=== PATIENT | female | born 1990 | race Caucasian/White ===

== ENCOUNTER → 2016-12-21 | Outpatient (CLI) | payer OTHER ==
[~2016-12-21] MED LIST: ALUM-30 PO; CALC500C3 PO; IBUP1CAP PO; OXYC-57 PO; PRENTAB26 PO
[2016-12-21 14:57] LABS: URINE APPEARANCE CLEAR (CLEAR); URINE BILIRUBIN NEG (NEG); URINE COLOR YELLOW; URINE EPITHELIAL CELL AUTO >30 /lpf (0-5); URINE NITRITE NEG (NEG); URINE PH 7.5 (4.5-7.5); URINE SPECIFIC GRAVITY 1.009 (1.000-1.030); UROBILINOGEN NEG (NEG)
[2016-12-21 15:05] LABS: MANUAL MICROSCOPIC REQUIRED? NO; REVIEW REQ? NO
== END | disposition home or self-care (01) ==
LOC: C.LABSPEC 13:40
PROVIDERS: ATTEND Obstetrics & Gynecology
DX: Z98.891 History of uterine scar from previous surgery (principal)

== ENCOUNTER → 2016-12-27 | Outpatient (CLI) | payer OTHER ==
[2016-12-27 12:51] LABS: BASO % 0.2 %; BASO ABS # 0.01 K/uL (0-0.2); COMPLETE YES; EOS % 2.3 %; HEMATOCRIT 39.8 % (37-47); IG% 0.2 %; LYMPH % 33.1 %; LYMPH ABS # 2.16 K/uL (1.2-3.4); MEAN CELL VOLUME 89.8 fL (80-100); MEAN CORPUSCULAR HEMOGLOBIN 30.7 pg (25-34); MEAN CORPUSCULAR HGB CONC 34.2 g/dl (32-36); MEAN PLATELET VOLUME 9.5 fL (7.4-10.4); MONO % 8.7 %; NEUT % 55.5 %; PLATELET COUNT 199 K/uL (130-400); RED BLOOD COUNT 4.43 M/uL (4.2-5.4); WHITE BLOOD COUNT 6.52 K/uL (4.8-10.8)
== END | disposition home or self-care (01) ==
LOC: C.LAB1850 11:20
PROVIDERS: ATTEND Obstetrics & Gynecology
DX: O09.299 Supervision of pregnancy with other poor reproductive or obstetric history, unspecified trimester (principal)

== ENCOUNTER → 2016-12-27 | Outpatient (CLI) | payer OTHER ==
[2016-12-30 15:38] LABS: CHLAMYDIA TRACH RNA*** NOT DETECTED (NOT DETECTED); GC (NEIS GONORRHOEAE)RNA** NOT DETECTED (NOT DETECTED)
== END | disposition home or self-care (01) ==
LOC: C.LABSPEC 14:06
PROVIDERS: ATTEND Obstetrics & Gynecology
DX: O09.299 Supervision of pregnancy with other poor reproductive or obstetric history, unspecified trimester (principal)

== ENCOUNTER 2017-01-13 11:12 | Emergency (ER) | payer OTHER ==
[~2017-01-13 11:12] MED LIST changes: -ALUM-30 PO; -CALC500C3 PO; -OXYC-57 PO
[2017-01-13 11:16] VITALS: TEMP 36.7
[2017-01-13] MEDS ORDERED: SODIUM CHLORIDE 0.9% 1000ML 1,000 ML IV STA (11:35)
[2017-01-13] MEDS ORDERED: SODIUM CHLORIDE 0.9% 1000ML 1,000 ML IV ONE (11:35)
--- NOTE | 2017-01-13 11:35 | EMERGENCY ROOM VISIT NOTE ---
History Report prepared by Alla: Yogesh Orta Under the Supervision of: Dr. Bartolo Sousa M.D. First contact with patient: 11:20 Chief Complaint: ABDOMINAL PAIN Stated Complaint: RIGHT SIDE LOWERE ABD. PAIN/HEADACHE Nursing Triage Summary: "I woke up this morning and I have lower abdominal pain between my pelvis and abdomen." She related that the pain was so bad she could not breathe and her fiance carried her to bed. History of Present Illness The patient is a 26 year old female who presents to the Emergency Room with complaints of sharp right lower quadrant abdominal pain that began this morning. She rates her pain a 2/10 in severity. Her pain awoke her from slumber. Nothing particularly makes it better or worse. At this time, she went to the bathroom and thought it may have been a pulled muscle. She then became diaphoretic, lightheaded, and shaky. She felt like she was going to pass out. These symptoms have cleared up at this time. However, she has a headache. She denies any chest pain, cough, shortness of breath, trauma, diarrhea, melena, or hematochezia. She has a history of 7 pregnancies in the past, 4 of which were miscarriages before 9 weeks. She is currently 12 weeks . She has a past medical history of cesarian sections. Source of History: patient, family Onset: last night Position: abdomen (RLQ) Symptom Intensity: 2/10 Quality: sharp Timing: constant Associated Symptoms: + headache, No SOB, No back pain, No chest pain, No diarrhea, No hematochezia, No melena, No vomiting Review of Systems See HPI for pertinent positives & negatives. A total of 10 systems reviewed and were otherwise negative. Past Medical & Surgical Medical Problems: (1) Active Labor (2) Bladder Laceration (3) REPEAT SECTION Old medical records were reviewed. Nurse's notes were reviewed and I agree with. She's had several pregnancies as well as miscarriage, total of 7 pregnancies Family History Patient reports no known family medical history. Social History Smoking Status: Never Smoker Smokeless Tobacco Use: No Alcohol Use: none Drug Use: none Marital Status: single, in relationship Housing Status: lives with significant other Occupation Status: employed Current/Historical Medications No Active Prescriptions or Reported Meds Allergies Coded Allergies: Azithromycin (Unverified Allergy, Unknown, HEART RACING, 01/13/17) Physical Exam Vital Signs Date Time Temp Pulse Resp B/P Pulse Ox O2 Delivery O2 Flow Rate FiO2 01/13/17 13:20 67 16 90/49 99 Room Air 01/13/17 11:16 36.7 80 20 124/80 99 Room Air Physical Exam General: Non ill appearing young female Well developed well nourished in no acute distress, breathing comfortably on room air. Normal speech HEENT: Normal cephalic atraumatic. Pupils are equal round and reactive to light. Extraocular movements are intact. Oropharynx is pink with moist mucous membranes. No swelling of the mouth lips or tongue. Neck: Supple with a midline trachea. No meningeal signs or stiffness, no JVD or bruits. No Stridor. Chest: Clear to auscultation bilaterally. No wheezes or rhonchi. No increased work of breathing. Heart: regular rate and rhythm. Abdomen: Soft mildly tender in the right lower abdomen, nondistended without rebound guarding or rigidity. Extremities: No cyanosis clubbing or edema. No calf tenderness or assymetry Spine/Back. Mildly tender to the right flank. No CVA tenderness Skin: Good turgor without rashes. Neurologic exam: Cranial nerves two through 12 are intact. Motor and sensation are intact and symmetrical throughout. Medical Decision & Procedures ER Provider Diagnostic Interpretation: Radiology results as stated below per my review and radiologist interpretation: RENAL ULTRASOUND CLINICAL HISTORY: Right flank pain. 12 weeks . COMPARISON STUDY: [facility] November 01, 2011. TECHNIQUE: Sonography of the kidneys and the urinary bladder was performed. FINDINGS: The right kidney measures 10.8 x 4.3 x 4.6 cm and the left measures 10.1 x 4.3 x 5.4 cm. There is no hydronephrosis. Renal echogenicity, size and cortical thickness are normal. No masses or calculi are identified by sonography. Bladder is unremarkable. Both ureteral jets were identified. IMPRESSION: Normal renal ultrasound. No hydronephrosis. Electronically signed by: Roberto Zamora M.D. 01/13/2017 1:02 PM Dictated Date/Time: 01/13/2017 1:01 PM LIMITED (US) CLINICAL HISTORY: Right lower quadrant pain. 12 weeks . COMPARISON STUDY: No previous studies for comparison. TECHNIQUE: Transabdominal sonography of the pelvis was performed. FINDINGS: A single viable intrauterine gestation is noted with normal heart rate of 154 bpm. Please note that a dedicated anatomical survey was not performed. The femur length measured 0.93 cm which corresponds to an estimated gestational age of 12 weeks and 5 days. The biparietal diameter measured 1.86 cm which corresponds to an estimated gestational age of 12 weeks and 6 days. [employer]-rump length was 5.95 cm which corresponds to an estimated gestational age of 12 weeks and 3 days. Estimated age on this exam is 12 weeks and 5 days. Placenta is located anteriorly and is within normal limits. The cervix was closed although not fully assessed on this exam. Presentation is breech. IMPRESSION: 1. Single viable intrauterine gestation with estimated gestational age of 12 weeks and 5 days on this study. 2. Normal heart of 154 bpm. 3. No placental abnormality. Anteriorly located placenta. 4. Breech presentation. Electronically signed by: Roberto Zamora M.D. 01/13/2017 1:05 PM Dictated Date/Time: 01/13/2017 1:02 PM APPENDIX ULTRASOUND HISTORY: Right lower quadrant pain. COMPARISON: None. FINDINGS: Transabdominal scanning of the right lower quadrant was performed. The appendix was not identified. There are no fluid collections or masses within the right lower quadrant. IMPRESSION: Nonvisualization of the appendix. This study is nondiagnostic in regards to evaluation for acute appendicitis. Electronically signed by: Roberto Zamora M.D. 01/13/2017 1:01 PM Dictated Date/Time: 01/13/2017 1:01 PM Laboratory Results 01/13/17 11:40 Red Blood Count 4.47, Mean Corpuscular Volume 88.8, Mean Corpuscular Hemoglobin 30.0, Mean Corpuscular Hemoglobin Concent 33.8, Mean Platelet Volume 8.7, Neutrophils (%) (Auto) 64.6, Lymphocytes (%) (Auto) 26.6, Monocytes (%) (Auto) 6.5, Eosinophils (%) (Auto) 1.9, Basophils (%) (Auto) 0.2, Neutrophils # (Auto) 3.76, Lymphocytes # (Auto) 1.55, Monocytes # (Auto) 0.38, Eosinophils # (Auto) 0.11, Basophils # (Auto) 0.01 01/13/17 11:40 Test 01/13/17 11:40 01/13/17 13:10 White Blood Count 5.82 K/uL (4.8-10.8) Red Blood Count 4.47 M/uL (4.2-5.4) Hemoglobin 13.4 g/dL (12.0-16.0) Hematocrit 39.7 % (37-47) Mean Corpuscular Volume 88.8 fL (80-100) Mean Corpuscular Hemoglobin 30.0 pg (25-34) Mean Corpuscular Hemoglobin Concent 33.8 g/dl (32-36) Platelet Count 186 K/uL (130-400) Mean Platelet Volume 8.7 fL (7.4-10.4) Neutrophils (%) (Auto) 64.6 % Lymphocytes (%) (Auto) 26.6 % Monocytes (%) (Auto) 6.5 % Eosinophils (%) (Auto) 1.9 % Basophils (%) (Auto) 0.2 % Neutrophils # (Auto) 3.76 K/uL (1.4-6.5) Lymphocytes # (Auto) 1.55 K/uL (1.2-3.4) Monocytes # (Auto) 0.38 K/uL (0.11-0.59) Eosinophils # (Auto) 0.11 K/uL (0-0.5) Basophils # (Auto) 0.01 K/uL (0-0.2) RDW Standard Deviation 42.5 fL (36.4-46.3) RDW Coefficient of Variation 13.2 % (11.5-14.5) Immature Granulocyte % (Auto) 0.2 % Immature Granulocyte # (Auto) 0.01 K/uL (0.00-0.02) Anion Gap 7.0 mmol/L (3-11) Estimated GFR () 141.3 Estimated GFR (Non- 121.9 BUN/Creatinine Ratio 8.6 (10-20) Calcium Level 8.7 mg/dl (8.5-10.1) Total Bilirubin 0.3 mg/dl (0.2-1) Direct Bilirubin < 0.1 mg/dl (0-0.2) Aspartate Amino Transf (AST/SGOT) 12 U/L (15-37) Alanine Aminotransferase (ALT/SGPT) 16 U/L (12-78) Alkaline Phosphatase 70 U/L (45-117) Total Protein 7.0 gm/dl (6.4-8.2) Albumin 3.2 gm/dl (3.4-5.0) Lipase 163 U/L (73-393) Human Chorionic Gonadotropin, Quant 97565 mIU/mL Urine Color YELLOW Urine Appearance CLEAR (CLEAR) Urine pH 7.5 (4.5-7.5) Urine Specific [place] 1.007 (1.000-1.030) Urine Protein NEG (NEG) Urine Glucose (UA) NEG (NEG) Urine Ketones NEG (NEG) Urine Occult Blood NEG (NEG) Urine Nitrite NEG (NEG) Urine Bilirubin NEG (NEG) Urine Urobilinogen NEG (NEG) Urine Leukocyte Esterase SMALL (NEG) Urine WBC (Auto) 1-5 /hpf (0-5) Urine RBC (Auto) 0-4 /hpf (0-4) Urine Hyaline Casts (Auto) 1-5 /lpf (0-5) Urine Epithelial Cells (Auto) >30 /lpf (0-5) Urine Bacteria (Auto) NEG (NEG) Laboratory studies as stated above per my review. Medications Administered Medications (Trade) Dose Ordered Sig/[place] Route Start Time Stop Time Status Last Admin Dose Admin Sodium Chloride 1,000 ml @ 999 mls/hr Q1H1M STAT IV 01/13/17 11:35 01/13/17 12:35 DC 01/13/17 11:50 999 MLS/HR Sodium Chloride (Nss 1000ml) 1,000 ml @ 200 mls/hr Q5H ONCE IV 01/13/17 11:35 01/13/17 14:14 DC 01/13/17 11:50 200 MLS/HR ECG Indication: abdominal pain Rate (beats per minute): 65 Rhythm: normal sinus Findings: no acute ischemic change, no ectopy Comparison ECG Date: no prior available ED Course 1120: Past medical records reviewed. The patient was evaluated in room C8, and a complete history and physical examination were performed. 1135: Ordered Sodium Chloride 1000 ml @ 200 mls/hr IV, Sodium Chloride 1000 ml @ 999 mls/hr IV 1345: She is still having mild centralized lower abdominal pain, but she would like to go home. 1347: I spoke with Dr. Marquez of [employer]NA[employer] about the patient at this time. They agree with the treatment plan and requests to follow up with OB soon. 1358: Upon reevaluation, the patient is resting. I discussed the results and treatment plan with her. She verbalized agreement of the treatment plan. The patient was discharged home. Medical Decision Differentials include complication, threatened miscarriage, kidney stone, ovarian cyst, appendicitis, electrolyte or metabolic abnormality, and infection. Medication Reconciliation: I attest that I have personally reviewed the patient' s current medication list. Blood pressure Screening: Patient was found to have normal blood pressure on screening and does not require follow-up. This patient comes in as described above. She had sudden severe right sided abdominal pain. She is about 12 weeks . She is feeling a lot better. She had an episode as well which sounds like a vasovagal spell. IV access established. Abdomen is mildly tender in lower abdomen on the right also towards right flank. She looks well on exam has no peritonitis. Multiple blood tests was obtained and did order ultrasounds as well as a urinalysis. She was reassessed frequently. She has no elevation of her white count or fever to suggest infection. Her urinalysis does not suggest a UTI. She has no significant electrolyte or metabolic abnormalities. Ultrasound reveals an normal appearing IUP. Appendix was not visualized. There is no kidney abnormalities. I talked to the patient length and she feels better. I think having her keep an eye on things and come back for recheck if not better makes sense. I told her that I cannot 100% rule out appendicitis however think is unlikely at this point. I do not want to expose her to unnecessary radiation or contrast or MRI. I explained the risk and benefit of having her observe herself at home. She and her [id number] agree with this and would like to do this. Certainly there would be risk to doing imaging or surgery as well. I encouraged her to return tomorrow if not 100% better otherwise follow-up with her rolling up machine operator on Saturday. I did discuss with the on-call rolling up machine operator, Dr. Marquez, who also agrees with the plan. She should rest and drink plenty of fluids and return if: increasing pain, fever or chills, worsening of symptoms, any new problems or concerns. She was happy with the plan and discharged to home. Consults Time Called: 1342 Consulting Physician: Dr. Marquez - [employer] MA[employer]GER Returned Call: [phone] Please see the ED course for more information. Impression Primary Impression: Lower abdominal pain Additional Impression: Scribe Attestation The scribe's documentation has been prepared under my direction and personally reviewed by me in its entirety. I confirm that the note above accurately reflects all work, treatment, procedures, and medical decision making performed by me. Departure Information Dispostion Home / Self-Care Prescriptions No Active Prescriptions or Reported Meds Referrals Leticia Early D.O. (PCP) Forms HOME CARE DOCUMENTATION FORM, IMPORTANT VISIT INFORMATION Patient Instructions [facility] Additional Instructions Rest. Drink plenty of fluids. For pain, may use acetaminophen a maximum of 650 mg every 6 hours, Do not take with any other medications that take contain acetaminophen/Tylenol Return if: Increasing pain, further symptoms, fever or chills, nausea or vomiting, any new problems or concerns Follow-up with your doctor on Saturday for recheck or return here tomorrow if the symptoms are persistent or worsen Problem Qualifiers
[2017-01-13 11:52] LABS: BASO % 0.2 %; BASO ABS # 0.01 K/uL (0-0.2); COMPLETE YES; EOS % 1.9 %; HEMATOCRIT 39.7 % (37-47); IG% 0.2 %; LYMPH % 26.6 %; LYMPH ABS # 1.55 K/uL (1.2-3.4); MEAN CELL VOLUME 88.8 fL (80-100); MEAN CORPUSCULAR HGB CONC 33.8 g/dl (32-36); MEAN PLATELET VOLUME 8.7 fL (7.4-10.4); MONO % 6.5 %; NEUT % 64.6 %; PLATELET COUNT 186 K/uL (130-400); RED BLOOD COUNT 4.47 M/uL (4.2-5.4); WHITE BLOOD COUNT 5.82 K/uL (4.8-10.8)
[2017-01-13 12:15] LABS: BLOOD UREA NITROGEN 6 mg/dl (7-18); BUN/CREATININE RATIO 8.6 (10-20); CALCIUM 8.7 mg/dl (8.5-10.1); CARBON DIOXIDE 26 mmol/L (21-32); CHLORIDE 109 mmol/L (98-107); CREATININE 0.66 mg/dl (0.60-1.20); GLUCOSE 84 mg/dl (70-99); POTASSIUM 3.8 mmol/L (3.5-5.1); SODIUM 142 mmol/L (136-145)
[2017-01-13 12:18] LABS: ALKALINE PHOSPHATASE 70 U/L (45-117); ALT/SGPT 16 U/L (12-78); AST/SGOT 12 U/L (15-37)
--- NOTE | 2017-01-13 13:02 | DIAGNOSTIC IMAGING REPORT ---
APPENDIX ULTRASOUND HISTORY: Right lower quadrant pain. COMPARISON: None. FINDINGS: Transabdominal scanning of the right lower quadrant was performed. The appendix was not identified. There are no fluid collections or masses within the right lower quadrant. IMPRESSION: Nonvisualization of the appendix. This study is nondiagnostic in regards to evaluation for acute appendicitis. Electronically signed by: Roberto Zamora M.D. 01/13/2017 1:01 PM Dictated Date/Time: 01/13/2017 1:01 PM
--- NOTE | 2017-01-13 13:03 | DIAGNOSTIC IMAGING REPORT ---
RENAL ULTRASOUND CLINICAL HISTORY: Right flank pain. 12 weeks . COMPARISON STUDY: [facility] November 01, 2011. TECHNIQUE: Sonography of the kidneys and the urinary bladder was performed. FINDINGS: The right kidney measures 10.8 x 4.3 x 4.6 cm and the left measures 10.1 x 4.3 x 5.4 cm. There is no hydronephrosis. Renal echogenicity, size and cortical thickness are normal. No masses or calculi are identified by sonography. Bladder is unremarkable. Both ureteral jets were identified. IMPRESSION: Normal renal ultrasound. No hydronephrosis. Electronically signed by: Roberto Zamora M.D. 01/13/2017 1:02 PM Dictated Date/Time: 01/13/2017 1:01 PM
--- NOTE | 2017-01-13 13:07 | DIAGNOSTIC IMAGING REPORT ---
LIMITED (US) CLINICAL HISTORY: Right lower quadrant pain. 12 weeks . COMPARISON STUDY: No previous studies for comparison. TECHNIQUE: Transabdominal sonography of the pelvis was performed. FINDINGS: A single viable intrauterine gestation is noted with normal heart rate of 154 bpm. Please note that a dedicated anatomical survey was not performed. The femur length measured 0.93 cm which corresponds to an estimated gestational age of 12 weeks and 5 days. The biparietal diameter measured 1.86 cm which corresponds to an estimated gestational age of 12 weeks and 6 days. [place]-rump length was 5.95 cm which corresponds to an estimated gestational age of 12 weeks and 3 days. Estimated age on this exam is 12 weeks and 5 days. Placenta is located anteriorly and is within normal limits. The cervix was closed although not fully assessed on this exam. Presentation is breech. IMPRESSION: 1. Single viable intrauterine gestation with estimated gestational age of 12 weeks and 5 days on this study. 2. Normal heart of 154 bpm. 3. No placental abnormality. Anteriorly located placenta. 4. Breech presentation. Electronically signed by: Roberto Zamora M.D. 01/13/2017 1:05 PM Dictated Date/Time: 01/13/2017 1:02 PM
[2017-01-13 13:20] VITALS: BP 90/49; PULSE 67; O2SAT 99
[2017-01-13 13:20] LABS: URINE APPEARANCE CLEAR (CLEAR); URINE BILIRUBIN NEG (NEG); URINE COLOR YELLOW; URINE EPITHELIAL CELL AUTO >30 /lpf (0-5); URINE NITRITE NEG (NEG); URINE PH 7.5 (4.5-7.5); URINE SPECIFIC GRAVITY 1.007 (1.000-1.030); UROBILINOGEN NEG (NEG)
[2017-01-13 13:22] LABS: MANUAL MICROSCOPIC REQUIRED? NO; REVIEW REQ? NO
[2017-07-18] MEDS ORDERED: ALUM-30 PO (11:05)
[2017-07-18] MEDS ORDERED: CALC500C3 PO (11:05)
[2017-07-21] MEDS ORDERED: OXYC-57 PO (08:45)
== END 2017-01-13 14:01 | disposition home or self-care (01) ==
LOC: C.EDB 11:13 → C.EDC 14:01
DX: R10.30 Lower abdominal pain, unspecified (principal); R51 Headache; O26.891 Other specified pregnancy related conditions, first trimester; Z3A.12 12 weeks gestation of pregnancy

== ENCOUNTER 2017-01-18 14:20 | Emergency (ER) | payer OTHER ==
[~2017-01-18] VITALS: Ht 170.2 cm; Wt 71.6 kg
[2017-01-18 14:31] VITALS: TEMP 36.6; Ht 170.2 cm; Wt 71.6 kg
[2017-01-18 14:57] LABS: BASO % 0.1 %; BASO ABS # 0.01 K/uL (0-0.2); COMPLETE YES; EOS % 1.3 %; IG% 0.1 %; LYMPH % 31.5 %; MEAN CELL VOLUME 88.8 fL (80-100); MEAN CORPUSCULAR HGB CONC 34.9 g/dl (32-36); MONO % 6.4 %; NEUT % 60.6 %; PLATELET COUNT 173 K/uL (130-400); RED BLOOD COUNT 4.39 M/uL (4.2-5.4); WHITE BLOOD COUNT 6.98 K/uL (4.8-10.8)
[2017-01-18 15:13] LABS: URINE APPEARANCE CLEAR (CLEAR); URINE BILIRUBIN NEG (NEG); URINE COLOR YELLOW; URINE EPITHELIAL CELL AUTO >30 /lpf (0-5); URINE NITRITE NEG (NEG); URINE SPECIFIC GRAVITY 1.017 (1.000-1.030); UROBILINOGEN NEG (NEG); ZZUR CULT IF INDIC CLEAN CATCH NO
--- NOTE | 2017-01-18 15:14 | EMERGENCY ROOM VISIT NOTE ---
History First contact with patient: 14:50 Chief Complaint: ABDOMINAL PAIN Stated Complaint: RIGHT SIDE ABD. PAIN Nursing Triage Summary: Triage note; pt reports right abd pain since last saturday. pt reports she was seen ed last saturday. pt reports she is 13 weeks preg. pt reports increased pain and nausea. History of Present Illness The patient is a 26 year old female who presents to the Emergency Room with complaints of abdominal pain. The patient is a female. She has had 2 sections in the past the patient states that she has had a right lower quadrant abdominal pain since last Saturday. She was seen in this emergency department on the of this month. She had renal ultrasound, abdominal ultrasound and pelvic ultrasound. They were all negative. The patient states that she has had persistent and intermittent pain. She states that occasionally she gets a sharp pain in the right lower abdomen. She states that when she gets the severe pain she feels nauseated, sweaty, lightheaded and near syncopal. The patient denies any fevers or sweating at any other time. She reports nausea but denies vomiting. She denies any urinary symptoms. She denies any vaginal bleeding or vaginal discharge. Review of Systems A 10 system review of systems was completed with positives and pertinent negatives listed in the HPI. Past Medical/Surgical History Medical Problems: (1) Active Labor (2) Bladder Laceration (3) REPEAT SECTION Family History Patient reports no known family medical history. Social History Smoking Status: Never Smoker Alcohol Use: none Drug Use: none Marital Status: single, in relationship Housing Status: lives with significant other Occupation Status: employed Current/Historical Medications No Active Prescriptions or Reported Meds Allergies Coded Allergies: Azithromycin (Unverified Allergy, Unknown, HEART RACING, 01/18/17) Physical Exam Vital Signs Date Time Temp Pulse Resp B/P (MAP) Pulse Ox O2 Delivery O2 Flow Rate FiO2 01/18/17 16:53 70 18 92/60 97 Room Air 01/18/17 16:15 55 18 87/54 97 Room Air 01/18/17 14:31 36.6 73 18 111/72 98 Room Air Physical Exam VITALS: Vitals are noted on the nurse's note and reviewed by myself. Vital signs stable. The patient is afebrile. GENERAL: This is a 26-year-old female, in no acute distress, nondiaphoretic, well-developed well-nourished. SKIN: The skin was without rashes, erythema, edema, or bruising. There is no tenting of the skin. Capillary reflex less than 2 seconds. HEAD: Normocephalic atraumatic. EARS: The external ears are normal in appearance. EYES: Pupils equal round and reactive to light and accommodation. Conjunctivae without injection, sclerae without icterus. Extraocular movements intact. NOSE: Patent, turbinates without inflammation or discharge. No sinus tenderness. MOUTH: Mucous membranes moist. Tonsils are not enlarged. Pharynx without erythema or exudate. Uvula midline. Airway patent. Tongue does not deviate. NECK: Supple without nuchal rigidity. No lymphadenopathy. No thyromegaly. Cervical spine is nontender. No JVD. HEART: Regular rate and rhythm without murmurs gallops or rubs. LUNGS: Clear to auscultation bilaterally without wheezes, rales or rhonchi. No retractions or accessory muscle use. ABDOMEN: Positive bowel sounds x 4. Soft, moderate right lower quadrant tenderness, without masses or organomegaly. Dover sign negative. MUSCULOSKELETAL: No muscle atrophy, erythema, or edema noted. Full range of motion in all extremities. Normal gait. Strength 5/5 throughout. NEURO: Patient was alert and oriented to person place and time. No focal neurological deficits. Medical Decision & Procedures ER Provider Diagnostic Interpretation: ULTRASOUND OF THE APPENDIX CLINICAL HISTORY: Right lower quadrant abdominal pain. . COMPARISON STUDY: Ultrasound of the right lower quadrant dated 01/13/2017. FINDINGS: Real-time, grayscale, and color flow sonography of the right lower quadrant was performed to assess for acute appendicitis. The appendix was not discretely visualized. Trace free fluid is identified in the right lower quadrant. No lymphadenopathy was seen. IMPRESSION: 1. Nonvisualization of the appendix. Note that this does not exclude acute appendicitis. 2. Trace nonspecific fluid is noted in the right lower quadrant. LIMITED (US) CLINICAL HISTORY: right abdominal pain, 13 weeks gestation COMPARISON STUDY: ultrasound 01/05/2017. FINDINGS: There is again noted a single viable intrauterine gestation with a heart rate of 141 bpm. [place]-rump length is 6.78 cm consistent with a 13 week and 1 day fetus. The cervix appears closed. Anterior placenta. No evidence for subchorionic hematoma. Left ovary was not identified. Normal color flow within the right ovary. Normal amniotic fluid volume. IMPRESSION: Single viable 13 week and 1 day intrauterine gestation. heart rate is 141 bpm. Laboratory Results 01/18/17 14:40 Red Blood Count 4.39, Mean Corpuscular Volume 88.8, Mean Corpuscular Hemoglobin 31.0, Mean Corpuscular Hemoglobin Concent 34.9, Mean Platelet Volume 9.0, Neutrophils (%) (Auto) 60.6, Lymphocytes (%) (Auto) 31.5, Monocytes (%) (Auto) 6.4, Eosinophils (%) (Auto) 1.3, Basophils (%) (Auto) 0.1, Neutrophils # (Auto) 4.22, Lymphocytes # (Auto) 2.20, Monocytes # (Auto) 0.45, Eosinophils # (Auto) 0.09, Basophils # (Auto) 0.01 01/18/17 14:40 Test 01/18/17 14:40 01/18/17 14:43 White Blood Count 6.98 K/uL (4.8-10.8) Red Blood Count 4.39 M/uL (4.2-5.4) Hemoglobin 13.6 g/dL (12.0-16.0) Hematocrit 39.0 % (37-47) Mean Corpuscular Volume 88.8 fL (80-100) Mean Corpuscular Hemoglobin 31.0 pg (25-34) Mean Corpuscular Hemoglobin Concent 34.9 g/dl (32-36) Platelet Count 173 K/uL (130-400) Mean Platelet Volume 9.0 fL (7.4-10.4) Neutrophils (%) (Auto) 60.6 % Lymphocytes (%) (Auto) 31.5 % Monocytes (%) (Auto) 6.4 % Eosinophils (%) (Auto) 1.3 % Basophils (%) (Auto) 0.1 % Neutrophils # (Auto) 4.22 K/uL (1.4-6.5) Lymphocytes # (Auto) 2.20 K/uL (1.2-3.4) Monocytes # (Auto) 0.45 K/uL (0.11-0.59) Eosinophils # (Auto) 0.09 K/uL (0-0.5) Basophils # (Auto) 0.01 K/uL (0-0.2) RDW Standard Deviation 43.6 fL (36.4-46.3) RDW Coefficient of Variation 13.3 % (11.5-14.5) Immature Granulocyte % (Auto) 0.1 % Immature Granulocyte # (Auto) 0.01 K/uL (0.00-0.02) Anion Gap 8.0 mmol/L (3-11) Est Creatinine Clear Calc Drug Dose 131.6 ml/min Estimated GFR () 143.5 Estimated GFR (Non- 123.8 BUN/Creatinine Ratio 9.8 (10-20) Calcium Level 8.9 mg/dl (8.5-10.1) Total Bilirubin 0.3 mg/dl (0.2-1) Aspartate Amino Transf (AST/SGOT) 14 U/L (15-37) Alanine Aminotransferase (ALT/SGPT) 17 U/L (12-78) Alkaline Phosphatase 73 U/L (45-117) Total Protein 7.2 gm/dl (6.4-8.2) Albumin 3.4 gm/dl (3.4-5.0) Globulin 3.8 gm/dl (2.5-4.0) Albumin/Globulin Ratio 0.9 (0.9-2) Lipase 234 U/L (73-393) Human Chorionic Gonadotropin, Quant 68814 mIU/mL Urine Color YELLOW Urine Appearance CLEAR (CLEAR) Urine pH 7.0 (4.5-7.5) Urine Specific [place] 1.017 (1.000-1.030) Urine Protein NEG (NEG) Urine Glucose (UA) NEG (NEG) Urine Ketones 1+ (NEG) Urine Occult Blood NEG (NEG) Urine Nitrite NEG (NEG) Urine Bilirubin NEG (NEG) Urine Urobilinogen NEG (NEG) Urine Leukocyte Esterase SMALL (NEG) Urine WBC (Auto) 1-5 /hpf (0-5) Urine RBC (Auto) 0-4 /hpf (0-4) Urine Hyaline Casts (Auto) 1-5 /lpf (0-5) Urine Epithelial Cells (Auto) >30 /lpf (0-5) Urine Bacteria (Auto) NEG (NEG) Urine Test POS (NEG) ED Course The patient was seen and examined. Previous visits were reviewed. The patient does not have a fever or leukocytosis. She does not have any significant electrolyte abnormalities. Lipase is not elevated. Her quantitative hCG is 88, 000. Urinalysis suggests contamination. Ultrasounds were obtained as above. The patient presents to the emergency Department with almost 2 weeks of right lower quadrant pain. She was seen here a few days ago and had a negative workup including renal ultrasound, pelvic ultrasound and abdominal ultrasound. The patient's pain has persisted. She still has no fever or leukocytosis. Ultrasounds were repeated. There was trace free fluid in the pelvis. The patient does not have any vaginal bleeding or discharge. The pain is intermittent. She does have a vagal response with the sharp intermittent pain. She has not had any significant pain while in the emergency department. The patient was found to have hypotension. Upon review of previous documentation this is fairly baseline for her. I discussed the case with Dr. Meadows. She suggests this could be related to scar tissue secondary to the previous C-sections. The patient was advised not to drive in the event that she has an episode of pain and a near syncopal episode. She was advised to rest. She should return to the emergency department with fevers, vomiting, worsening pain. The case was discussed with Dr. Dalton who agrees with the assessment and treatment plan. Medical Decision DIFFERENTIAL DIAGNOSIS: Hepatitis, cholecystitis, cholangitis, biliary colic, pancreatitis, pneumonia, subdiaphragmatic abscess, appendicitis, inguinal hernia , nephrolithiasis, inflammatory bowel disease, mesenteric adenitis, peptic ulcer disease, GERD, gastritis, pancreatitis, myocardial infarction, pericarditis, ruptured aortic aneurysm, appendicitis, gastroenteritis, bowel obstruction, splenic infarct, diverticulitis, mesenteric ischemia, metabolic, peritonitis, Pelvic inflammatory disease, ovarian cyst, ovarian torsion, ovarian rupture, , ectopic , endometriosis, endometritis, urinary tract infection, ruptured ovarian cyst, tubo-ovarian abscess, among others. Impression Primary Impression: Right lower quadrant abdominal pain Departure Information Dispostion Home / Self-Care Condition GOOD Prescriptions No Active Prescriptions or Reported Meds Referrals Leticia Early D.O. (PCP) Melisa Marquez M.D. Patient Instructions Abdominal Pain, My [employer] Additional Instructions Increase fluids Rest Tylenol according to package instructions for pain No driving until this pain resolves Follow-up with PROGRESSIVE CARE UNIT REGISTERED NURSE as scheduled for further evaluation and management Return if any worsening symptoms, fevers, vomiting
[2017-01-18 15:15] LABS: BUN/CREATININE RATIO 9.8 (10-20); CALCIUM 8.9 mg/dl (8.5-10.1); CREATININE 0.63 mg/dl (0.60-1.20); POTASSIUM 3.6 mmol/L (3.5-5.1)
[2017-01-18 15:18] LABS: ALB/GLOB RATIO 0.9 (0.9-2)
[2017-01-18 15:28] LABS: MANUAL MICROSCOPIC REQUIRED? NO; REVIEW REQ? NO
--- NOTE | 2017-01-18 16:18 | DIAGNOSTIC IMAGING REPORT ---
ULTRASOUND OF THE APPENDIX CLINICAL HISTORY: Right lower quadrant abdominal pain. . COMPARISON STUDY: Ultrasound of the right lower quadrant dated 01/13/2017. FINDINGS: Real-time, grayscale, and color flow sonography of the right lower quadrant was performed to assess for acute appendicitis. The appendix was not discretely visualized. Trace free fluid is identified in the right lower quadrant. No lymphadenopathy was seen. IMPRESSION: 1. Nonvisualization of the appendix. Note that this does not exclude acute appendicitis. 2. Trace nonspecific fluid is noted in the right lower quadrant. Electronically signed by: Gerry Deshpande M.D. 01/18/2017 4:17 PM Dictated Date/Time: 01/18/2017 4:17 PM
--- NOTE | 2017-01-18 16:24 | DIAGNOSTIC IMAGING REPORT ---
LIMITED (US) CLINICAL HISTORY: right abdominal pain, 13 weeks gestation COMPARISON STUDY: ultrasound 01/05/2017. FINDINGS: There is again noted a single viable intrauterine gestation with a heart rate of 141 bpm. [place]-rump length is 6.78 cm consistent with a 13 week and 1 day fetus. The cervix appears closed. Anterior placenta. No evidence for subchorionic hematoma. Left ovary was not identified. Normal color flow within the right ovary. Normal amniotic fluid volume. IMPRESSION: Single viable 13 week and 1 day intrauterine gestation. heart rate is 141 bpm. Electronically signed by: Louis Ruff M.D. 01/18/2017 4:23 PM Dictated Date/Time: 01/18/2017 4:17 PM
[2017-01-18 16:53] VITALS: BP 92/60; PULSE 70; O2SAT 97
[2017-07-18] MEDS ORDERED: CALC500C3 PO (11:05)
[2017-07-18] MEDS ORDERED: ALUM-30 PO (11:05)
[2017-07-21] MEDS ORDERED: OXYC-57 PO (08:45)
== END 2017-01-18 17:20 | disposition home or self-care (01) ==
LOC: C.EDB 14:21 → C.EDC 17:20
DX: R10.31 Right lower quadrant pain (principal)

== ENCOUNTER → 2017-02-18 | Outpatient (CLI) | payer OTHER ==
[~2017-02-18] MED LIST changes: -IBUP1CAP PO
[2017-02-18 13:32] LABS: GTGD 50 Grams
[2017-02-20 11:53] LABS: AFP CONCENTRATION 60.6 NG/ML; AFP MULTIPLE OF MEDIAN 1.61; AFPTS GESTATIONAL AGE 17.4 WEEKS; AFPTS INSULIN DEP DIABETIC? NO; AFPTS MATERNAL WT 161 LBS; ALPHA-FETOPROTEIN RACE CAUCASIAN=W; ESTRIOL MULTIPLE OF MEDIAN 1.39; HISTORY OF NTD NOT PROVIDED; INHIBIN A 133 PG/ML; INHIBIN A MOM 0.84; REPEAT SAMPLE? NO; hCG MULTIPLE OF MEDIAN 1.32
== END | disposition home or self-care (01) ==
LOC: C.LAB1850 09:33
PROVIDERS: ATTEND Obstetrics & Gynecology
DX: Z34.93 Encounter for supervision of normal pregnancy, unspecified, third trimester (principal)

== ENCOUNTER → 2017-05-01 | Outpatient (CLI) | payer OTHER ==
[2017-05-01 14:09] LABS: HEMATOCRIT 34.2 % (37-47)
[2017-05-01 16:15] LABS: URINE APPEARANCE TURBID (CLEAR); URINE BILIRUBIN NEG (NEG); URINE COLOR YELLOW; URINE EPITHELIAL CELL AUTO >30 /lpf (0-5); URINE NITRITE NEG (NEG); URINE PH 8.5 (4.5-7.5); URINE SPECIFIC GRAVITY 1.018 (1.000-1.030); UROBILINOGEN NEG (NEG)
[2017-05-01 16:35] LABS: MANUAL MICROSCOPIC REQUIRED? NO; REVIEW REQ? YES
[2017-05-01 16:42] LABS: SULFASALICYLIC ACID NEG (NEG)
[2017-05-01 17:40] LABS: GTGD 50 Grams
== END | disposition home or self-care (01) ==
LOC: C.LAB1850 12:40
PROVIDERS: ATTEND Obstetrics & Gynecology
DX: Z34.83 Encounter for supervision of other normal pregnancy, third trimester (principal)

== ENCOUNTER 2017-05-12 14:22 | Outpatient (CLI) | payer OTHER ==
[~2017-05-12] VITALS: Ht 170.2 cm; Wt 76.7 kg
[2017-05-12 15:12] LABS: URINE APPEARANCE TURBID (CLEAR); URINE BILIRUBIN NEG (NEG); URINE COLOR YELLOW; URINE EPITHELIAL CELL AUTO >30 /lpf (0-5); URINE NITRITE NEG (NEG); URINE PH 6.5 (4.5-7.5); URINE SPECIFIC GRAVITY 1.016 (1.000-1.030); UROBILINOGEN NEG (NEG)
[2017-05-12 15:13] LABS: MANUAL MICROSCOPIC REQUIRED? NO; REVIEW REQ? YES
[2017-05-12 15:29] LABS: BASO % 0.2 %; BASO ABS # 0.02 K/uL (0-0.2); COMPLETE YES; EOS % 1.8 %; HEMATOCRIT 31.4 % (37-47); IG% 0.2 %; LYMPH % 24.4 %; LYMPH ABS # 2.22 K/uL (1.2-3.4); MEAN CELL VOLUME 92.4 fL (80-100); MEAN CORPUSCULAR HEMOGLOBIN 31.2 pg (25-34); MEAN CORPUSCULAR HGB CONC 33.8 g/dl (32-36); MEAN PLATELET VOLUME 8.9 fL (7.4-10.4); MONO % 5.1 %; NEUT % 68.3 %; PLATELET COUNT 191 K/uL (130-400); WHITE BLOOD COUNT 9.08 K/uL (4.8-10.8)
[2017-05-12] MEDS ORDERED: NITROFURANTOIN MONOHYDRATE 100 MG CAP PO STA (15:40)
[2017-05-12 16:24] VITALS: Ht 170.2 cm; Wt 76.7 kg
[2017-05-12] MEDS ORDERED: PRENTAB26 PO (16:25)
== END 2017-05-12 16:20 | disposition home or self-care (01) ==
LOC: C.OPB 14:22 → C.LD 14:22 → C.OPB 16:20
PROVIDERS: ATTEND Obstetrics & Gynecology
DX: O99.89 Other specified diseases and conditions complicating pregnancy, childbirth and the puerperium (principal); M54.9 Dorsalgia, unspecified; Z3A.29 29 weeks gestation of pregnancy

== ENCOUNTER 2017-05-28 21:00 | Outpatient (CLI) | payer OTHER ==
[~2017-05-28] VITALS: Ht 167.6 cm; Wt 77.5 kg
[2017-05-28 22:33] LABS: URINE APPEARANCE CLEAR (CLEAR); URINE BILIRUBIN NEG (NEG); URINE COLOR YELLOW; URINE NITRITE NEG (NEG); URINE SPECIFIC GRAVITY 1.015 (1.000-1.030); UROBILINOGEN NEG (NEG)
[2017-05-28 22:35] LABS: MANUAL MICROSCOPIC REQUIRED? YES; REVIEW REQ? NO
[2017-05-28 22:48] LABS: URINE BACTERIA 2+ (NEG); URINE RBC 0-4 /hpf (0-4); URINE WBC >30 /hpf (0-5)
[2017-05-28 23:29] VITALS: Ht 167.6 cm; Wt 77.5 kg
== END 2017-05-28 23:18 | disposition home or self-care (01) ==
LOC: C.OPB 21:00 → C.LD 21:01 → C.OPB 23:18
PROVIDERS: ATTEND Obstetrics & Gynecology
DX: O26.893 Other specified pregnancy related conditions, third trimester (principal); R10.9 Unspecified abdominal pain; Z3A.31 31 weeks gestation of pregnancy

== ENCOUNTER 2017-06-28 18:36 | Outpatient (CLI) | payer OTHER ==
[~2017-06-28] VITALS: Ht 170.2 cm; Wt 80.5 kg
[2017-06-28 19:36] VITALS: Ht 170.2 cm; Wt 80.5 kg
== END 2017-06-28 19:25 | disposition home or self-care (01) ==
LOC: C.OPB 18:36 → C.LD 18:37 → C.OPB 19:25
PROVIDERS: ATTEND Obstetrics & Gynecology
DX: O62.9 Abnormality of forces of labor, unspecified (principal); Z3A.36 36 weeks gestation of pregnancy

== ENCOUNTER → 2017-07-04 | Outpatient (CLI) | payer OTHER | END | disposition home or self-care (01) | LOC: C.LABSPEC 13:35 | PROVIDERS: ATTEND Obstetrics & Gynecology | DX: Z34.83 Encounter for supervision of other normal pregnancy, third trimester (principal); Z3A.00 Weeks of gestation of pregnancy not specified ==

== ENCOUNTER 2017-07-08 12:01 | Outpatient (CLI) | payer OTHER ==
--- NOTE | 2017-07-16 15:24 | EDITING REQUIRED CODING QUERY ---
DIAGNOSIS NEEDED To promote full compliance with coding requirements relating to patient care, physician participation is requested in all cases of steam blocker uncertainty. Please assist us with the question(s) below: Coding Question: The patient received care in labor and delivery on 07/08/17 as noted within the record. Please document the diagnosis that is being addressed by the medication/treatment. Provider Response: DIAGNOSIS: Contractions, r/o labor WEEKS GESTATION: 38 weeks gestation Thank you for your assistance, Roberta Ortiz - Cattle Manager
[2017-07-18] MEDS ORDERED: CALC500C3 PO (11:05)
[2017-07-18] MEDS ORDERED: ALUM-30 PO (11:05)
[2017-07-21] MEDS ORDERED: OXYC-57 PO (08:45)
== END 2017-07-08 13:25 | disposition home or self-care (01) ==
LOC: C.OPB 12:01 → C.LD 12:01 → C.OPB 13:25 → EDSTATUS 07-26 12:04
PROVIDERS: ATTEND Obstetrics & Gynecology
DX: O62.9 Abnormality of forces of labor, unspecified (principal); Z3A.38 38 weeks gestation of pregnancy

== ENCOUNTER 2017-07-19 05:28 | Inpatient (IN) | payer OTHER ==
[2017-07-18 10:51] VITALS: BMI 28.0
--- NOTE | 2017-07-18 11:07 | PAT Medication Instructions ---
Service Date Jul 18, 2017. Current Home Medication List Alum & Mag Hydrox-Simethicone (Mylanta), 1 PO HS Calcium Carbonate (Tums), 2 TAB PO Q4 Multivit/Min/Iron/Fol Ac/Pren ( Vitamin), 1 TAB PO DAILY Medication Instructions For Your Scheduled Surgery - Hold the following medications the morning of surgery: Calcium Carbonate (Tums), 2 TAB PO Q4 Multivit/Min/Iron/Fol Ac/Pren ( Vitamin), 1 TAB PO DAILY - Take the following medications as scheduled the night before surgery: Alum & Mag Hydrox-Simethicone (Mylanta), 1 PO HS If you have any questions please call us at [phone] or [phone] or [phone]
--- NOTE | 2017-07-18 11:13 | HISTORY & PHYSICAL EXAMINATION ---
DATE OF ADMISSION: 07/19/2017 PREOPERATIVE DIAGNOSES: 1. Intrauterine at 39- 0/7 weeks. 2. History of previous section x2. 3. Request for permanent surgical sterilization. HISTORY OF PRESENT ILLNESS: The patient is a 7, para 2-0-4-2 with an EDC of 07/26/2017 based on an LMP and an early first trimester ultrasound who presents at 39-0/7 weeks for repeat section. This has been essentially uncomplicated. Additionally, the patient would like permanent surgical sterilization at the time of her . She does note in her last in 2012, she had a hole made in her bladder for which she had identification repair and Vasquez catheter for 2 weeks. The patient notes good movement, no leaking, no bleeding, positive and occasional contractions. 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 G1 February 2011, 40 weeks, 8 pound 1 ounce, section for failure to descend. She did get to 10 cm. Third September 2012, 39-2/7 weeks, 7 pounds 5 ounces, with the inadvertent cystotomy. 4, March 2015, miscarriage. 5 August 02, miscarriage. 6, July 2016 miscarriage and 7 current. She does have a history of an abnormal Pap smear with colposcopy in February 2011. She denies sexually transmitted illnesses other than genital warts. PAST MEDICAL HISTORY: The patient has a history of migraines, anxiety with no medications and a history of chickenpox. She denies thyroid disease, asthma, heart disease, heart murmur, diabetes, kidney or liver problems. ALLERGIES: AZITHROMYCIN. MEDICATIONS: vitamin. PAST SURGICAL HISTORY: x2 and colposcopy. SOCIAL HISTORY: She lives with the father of the baby and her 2 children. She denies tobacco, alcohol or drug use. PHYSICAL EXAMINATION: GENERAL: This is a well-developed, well-nourished white female in no acute distress. VITAL SIGNS: Blood pressure 102/70, weight 181.4 pounds. NECK: Supple without thyromegaly or lymphadenopathy. CHEST: Clear to auscultation bilaterally. CARDIOVASCULAR: Regular rate and rhythm without murmurs, gallops or rubs. BACK: Without costovertebral angle tenderness. ABDOMEN: Soft, gravid and nontender, measures 39 cm. EXTREMITIES: Show trace edema but are otherwise benign. PELVIC: Deferred. LABORATORY DATA: Blood type O negative, antibody negative, rubella immune, RPR nonreactive, hepatitis B, HIV negative, chlamydia and gonorrhea cultures negative. Declined cystic fibrosis and spinal muscular atrophy screening. One-hour glucose at 16 weeks 66 and 28 weeks 114. She did receive RhoGAM on 05/01/2017. Quad screen negative. GBS negative. ASSESSMENT: Mayela is a 7, para 2-0-4-2, with history of previous section x2, presents for repeat section and desires for permanent sterilization. The risk of the procedure were discussed with the patient including the risks of bleeding requiring transfusion, infection, poor wound healing, damage to surrounding structures including bowel, bladder, vessels, nerves, ureters with need for further surgery, hospitalization or intervention. We discussed the risk of injury to the baby. Discussed the risk of any surgery including heart attack, blood clot, stroke or . Additionally, she desires permanent surgical sterilization. Discussed the options including barriers, hormones, long-term reversible contraceptive options and vasectomy. She declined. She understands the increased risk of regret and if she should have failure, increased risk of ectopic. Consent was reviewed and signed and surgery is planned for July 19.
[2017-07-18 11:50] LABS: BASO % 0.2 %; BASO ABS # 0.02 K/uL (0-0.2); COMPLETE YES; EOS % 1.5 %; IG% 0.7 %; LYMPH % 26.6 %; LYMPH ABS # 2.42 K/uL (1.2-3.4); MEAN CELL VOLUME 90.9 fL (80-100); MEAN CORPUSCULAR HEMOGLOBIN 29.3 pg (25-34); MEAN CORPUSCULAR HGB CONC 32.2 g/dl (32-36); MEAN PLATELET VOLUME 9.2 fL (7.4-10.4); MONO % 6.8 %; NEUT % 64.2 %; PLATELET COUNT 203 K/uL (130-400); RED BLOOD COUNT 3.52 M/uL (4.2-5.4); WHITE BLOOD COUNT 9.09 K/uL (4.8-10.8)
[~2017-07-19] VITALS: Ht 170.2 cm; Wt 68.2 kg
[2017-07-19] VITALS (10 sets, daily range): BP systolic 94–95; BP diastolic 53–61; PULSE 72–83; TEMP 36.7–37.3; O2SAT 94–98; Ht 170.2 cm; Wt 68.2 kg
[~2017-07-19 05:28] MED LIST changes: +ALUM-30 PO; +CALC500C3 PO
[2017-07-19] MEDS ORDERED: CEFAZOLIN IV 2,000 MG in SYRINGE 0 ML IV SCH (06:00)
[2017-07-19] MEDS ORDERED: CITRIC ACID/SODIUM CITRATE 15 ML UDC PO SCH (06:00)
[2017-07-19] MEDS ORDERED: LACTATED RINGER'S 1000ML 1,000 ML IV SCH (06:00)
[2017-07-19 06:09] LABS: BASO % 0.1 %; BASO ABS # 0.01 K/uL (0-0.2); EOS % 1.9 %; HEMATOCRIT 31.3 % (37-47); IG% 0.5 %; LYMPH % 29.3 %; LYMPH ABS # 2.52 K/uL (1.2-3.4); MEAN CELL VOLUME 90.2 fL (80-100); MEAN CORPUSCULAR HEMOGLOBIN 29.7 pg (25-34); MEAN PLATELET VOLUME 8.7 fL (7.4-10.4); MONO % 7.3 %; NEUT % 60.9 %; PLATELET COUNT 202 K/uL (130-400); RED BLOOD COUNT 3.47 M/uL (4.2-5.4); WHITE BLOOD COUNT 8.61 K/uL (4.8-10.8)
[2017-07-19 06:12] LABS: COMPLETE YES; MEAN CORPUSCULAR HGB CONC 32.9 g/dl (32-36)
[2017-07-19] MEDS ORDERED: MoRPHine SULFATE PF 1 MG/ML 10 ML AMP/VIAL ONE (07:00)
--- NOTE | 2017-07-19 07:14 | History & Physical Bridge Note ---
H&P Re-Evaluation Bridge Note: I have examined the patient, reviewed the History & Physical and in the interval since the performance of the History & Physical I have noted the following changes of clinical significance: No changes noted
[2017-07-19] MEDS ORDERED: LACTATED RINGER'S 1000ML 500 ML IV PRN (07:29)
[2017-07-19] MEDS ORDERED: SODIUM CHLORIDE 0.9% 1000ML 1,000 ML IV PRN (07:29)
[2017-07-19] MEDS ORDERED: NALOXONE HCL INJ 1 MG in SODIUM CHLORIDE 0.9% 1000ML 1,000 ML IV PRN ×4 (07:29)
[2017-07-19] MEDS ORDERED: NALOXONE HCL INJ 0.08 MG in SYRINGE 1.8 ML IV PRN (07:29)
[2017-07-19] MEDS ORDERED: KETOROLAC TROMETHAMINE 30 MG/ML VIAL IV. PRN (07:30)
[2017-07-19] MEDS ORDERED: ONDANSETRON INJ 2 MG/ML 2 ML VIAL IV PRN ×2 (07:30)
[2017-07-19] MEDS ORDERED: EpHEDrine SULFATE INJ 50 MG/ML AMP IV PRN ×2 (07:30)
[2017-07-19] MEDS ORDERED: ATROPINE SULFATE 0.1 MG/ML 5ML SYR IV PRN (07:30)
[2017-07-19] MEDS ORDERED: DiphenhydrAMINE HCL 50 MG/ML VIAL IV PRN (07:30)
[2017-07-19] MEDS ORDERED: NALOXONE HCL 0.4 MG/1 ML VIAL/CARP IV PRN (07:30)
[2017-07-19] MEDS ORDERED: PHENYLEPHRINE 100MCG/ML 5ML SYR IV PRN (07:30)
[2017-07-19] MEDS ORDERED: NALBUPHINE HCL INJ 10 MG/ML AMP IV PRN (07:30)
[2017-07-19] MEDS ORDERED: MoRPHine SULFATE PF 1 MG/ML 10 ML AMP/VIAL EPI PRN (07:30)
[2017-07-19] MEDS ORDERED: PROMETHAZINE HCL INJ 12.5 MG in SODIUM CHLORIDE 0.9% 50ML 50 ML IV PRN ×4 (07:30)
[2017-07-19] MEDS ORDERED: MEPERIDINE HCL 25 MG/ML CARP IV PRN ×2 (07:30)
[2017-07-19] MEDS ORDERED: NO NARCOTICS OR SEDATIVES SCH (07:30)
[2017-07-19] MEDS ORDERED: CARBOPROST TROMETHAMINE 250 MCG/ML AMP ONE (08:18)
[2017-07-19] MEDS ORDERED: EpHEDrine SULFATE 50MG/5ML SYR ONE (08:19)
[2017-07-19] MEDS ORDERED: PHENYLEPHRINE HCL INJ 10 MG/ML VIAL ONE (08:19)
[2017-07-19] MEDS ORDERED: OXYTOCIN INJ 10 UNITS/ML VIAL ONE (08:19)
[2017-07-19] MEDS ORDERED: PROPOFOL IV EMULSION 10 MG/ML 20 ML VIAL IV ONE (08:19)
[2017-07-19] MEDS ORDERED: METOCLOPRAMIDE HCL INJ 5 MG/ML 2 ML VIAL ONE (08:19)
[2017-07-19] MEDS ORDERED: ONDANSETRON INJ 2 MG/ML 2 ML VIAL ONE (08:19)
--- NOTE | 2017-07-19 08:39 | [facility] Post Operative Brief Note ---
Immediate Operative Summary Operative Date Jul 19, 2017. Pre-Operative Diagnosis Term , previous Caesarean Section, Desire for tubal ligation Post-Operative Diagnosis same with delivery of living male child at 0811 Procedure(s) Performed Repeat Low Transverse Caesarean Section with bilateral tubal ligation Surgeon Dr. Melsia Marquez Media Manager Surgeon(s) Dr. Chau Estimated Blood Loss 700 Findings DELIVERED A VIABLE MALE INFANT, APGARS 8,9 WEIGHT 8#3.6OZS. NORMAL UTERUS, FALLOPIAN TUBES BILATERALLY. Fluids (cc crystalloids) 3000 mL Specimens a. placenta-hold b.cord blood specimen c.portion right fallopian tube d. portion left fallopian tube Drains RAJPUT TO STRAIGHT DRAINAGE AT END OF CASE Anesthesia SPINAL Complication(s) None Disposition Recovery Room / PACU
[2017-07-19] MEDS ORDERED: OXYTOCIN INJ 0.02 UNITS in LACTATED RINGER'S 1000ML 1 ML IV SCH (08:42)
[2017-07-19] MEDS ORDERED: BENZOCAINE 20% AER SPR 82.5 GM CAN EXT PRN (08:45)
[2017-07-19] MEDS ORDERED: MAGNESIUM HYDROXIDE SUSP 30 ML UDC PO PRN (08:45)
[2017-07-19] MEDS ORDERED: LANOLIN OINT EXT PRN ×2 (08:45)
[2017-07-19] MEDS ORDERED: HYDROCORTISONE ACETATE 25 MG SUPP PR PRN (08:45)
[2017-07-19] MEDS ORDERED: SUPERCREAM 0.870 % 15GM JAR EXT PRN (08:45)
[2017-07-19] MEDS ORDERED: SENNA 8.6 MG TAB PO PRN (08:45)
--- NOTE | 2017-07-19 09:07 | OPERATIVE REPORT ---
DATE OF OPERATION: 07/19/2017 PREOPERATIVE DIAGNOSES: 1. Intrauterine at 39-0/7 weeks. 2. History of previous section x2, desires repeat. 3. Desires permanent surgical sterilization. PROCEDURES: 1. Repeat lower transverse section. 2. Bilateral Tessy tubal ligation. SURGEON: Melisa Marquez MD. BROADCAST OPERATIONS DIRECTOR: Sun Chau, PGY-1 and Issac Campos MS3. ANESTHESIA: Spinal. ESTIMATED BLOOD LOSS: 700 mL. FLUIDS: 3 liters. URINE OUTPUT: 200 mL of clear yellow urine draining from the bladder at the end of the procedure. INDICATIONS: The patient is a 7, para 2-0-4-2, with a history of previous section x2 who presents for repeat section. She also desires permanent surgical sterilization. FINDINGS: At the time of surgery revealed normal uterus, tubes, and ovaries bilaterally. The bladder was adhesed fairly high on the uterus. She delivered a viable male infant from cephalic presentation, Apgars and weight pending. COMPLICATIONS: None. DRAINS: Vasquez. DISPOSITION: To recovery room in stable condition. DESCRIPTION OF PROCEDURE: The patient was taken to the operating room where she was identified verbally and by bracelet. She was seated on the operating table where spinal anesthetic was placed. She was placed in dorsal supine position with a leftward tilt. A Vasquez catheter was placed and she was prepped and draped in normal sterile fashion. The anesthetic was tested and found to be adequate. A timeout was held identifying correct patient, procedure and positioning. A Pfannenstiel incision was made with a knife over the previous incision and taken down through the underlying fascia with the knife. The fascia was incised in the midline with the knife and taken out laterally with scissors. The superior edge of the fascial incision was grasped, elevated and the underlying layer of rectus muscle was taken off bluntly and with scissors. In a similar fashion, the inferior edge of the fascial incision was grasped, elevated and the underlying layer of rectus muscle was taken off bluntly and with scissors. The muscles were sharply in the midline. The peritoneum was entered sharply. The muscles were taken sharply with scissors superiorly and inferiorly with good visualization of the bladder. The bladder flap was created by incising the vesicouterine peritoneum with scissors and taken out laterally. The bladder flap was created digitally. A lower segment transverse uterine incision was made with the knife and it was entered with a snap. Clear fluid was noted. The incision was stretched with the burr mill operator's fingers. Copious amounts of clear fluid was released with rupture of membranes. The burr mill operator's hand was placed into the incision and it was tight and I could not get the head through the incision so vacuum was called for. It was applied and then with gentle fundal pressure, the head was delivered. The nose and mouth were bulb suctioned. There was no nuchal cord. The rest of the was then delivered without difficulty. The nose and mouth were again bulb suctioned. The cord was clamped and cut. The was handed off to waiting department store general manager for drying and attention. Cord blood was obtained. The placenta was manually extracted. The uterus was cleared of all clot and debris with moistened laparotomy sponges. Uterus was exteriorized and the hysterotomy incision was repaired in 2 layers, the first a running locked layer, the second in an imbricating layer of 0 Vicryl. Attention was then turned to the tubes, first on the right and then on the left. The knuckle of tube was grasped with a Leoncio. It was sutured with 2-0 plain gut x2 and a tubal segment was removed. The tubal edges were cauterized. Hysterotomy incision was again inspected and found to be hemostatic. The uterus was reinteriorized. The tubal segments were examined and found to be hemostatic. The incision was examined and found to be hemostatic. The muscles were reapproximated in the midline using 0 Vicryl. The fascia was then reapproximated in the midline starting at the edges with 0 Vicryl. The subcuticular tissue was irrigated and was hemostatic and the skin was closed with subcuticular stitch of 4-0 Vicryl. All sponge, lap and needle counts were correct x2. The patient tolerated the procedure well and was taken to recovery room in stable condition. I attest to the content of the Intraoperative Record and any orders documented therein. Any exception s are noted below.
[2017-07-19] MEDS ORDERED: OXYTOCIN INJ 20 UNITS in LR 1,000 ML IV SCH (09:15)
--- NOTE | 2017-07-19 09:27 | Medical Student: [facility] ---
Operative Report Operative Date Jul 19, 2017. Pre-Operative Diagnosis IUP @ 39-0 wks; repeat section with b/l tubal ligation Post-Operative Diagnosis same as pre-op Procedure(s) Performed repeat low transverse section; b/l Tessy tubal ligation Surgeon Dr. Marquez Laundry Technician Surgeon(s) Dr. Chau Estimated Blood Loss 700cc Findings Normal appearing uterus, b/l fallopian tubes, and b/l ovaries. Bladder adhesion to anterior uterine wall. Male born from vertex presentation with 8 and 9 Apgars and weight of 8lb3.6oz Fluids (cc crystalloids) 3000cc Specimens cord blood specimen, segment of right fallopian tube, segment of left fallopian tube Drains lo Anesthesia spinal Complication(s) None Disposition Recovery Room / PACU Indications 27yo [id number] @39-0wks with hx of 2 previous sections who presents for repeat section and b/l tubal ligation.
[2017-07-19] MEDS: KETOROLAC TROMETHAMINE 30 MG/ML VIAL IV. PRN ×2 (10:07→16:50)
--- NOTE | 2017-07-19 11:26 | Anesthesiology Progress Note ---
Anesthesia Post Op Note Date & Time Jul 19, 2017 at 11:26 Notes Mental Status: alert / awake / arousable, participated in evaluation Pt Amnestic to Procedure: Yes Nausea / Vomiting: adequately controlled Pain: adequately controlled Airway Patency, RR, SpO2: stable & adequate BP & HR: stable & adequate Hydration State: stable & adequate Anesthetic Complications: no major complications apparent
[2017-07-19] MEDS: SIMETHICONE 80 MG CHEW PO SCH ×3 (13:33→19:40)
[2017-07-19] MEDS: DOCUSATE SODIUM 100 MG CAP PO SCH (19:40)
[2017-07-20] MEDS ORDERED: DC INTRASPINAL MORPHINE ONE
[2017-07-20] MEDS ORDERED: PROMETHAZINE HCL INJ 25 MG in SODIUM CHLORIDE 0.9% 50ML 50 ML IV PRN ×2
[2017-07-20] MEDS ORDERED: ONDANSETRON INJ 2 MG/ML 2 ML VIAL IV PRN
[2017-07-20] MEDS ORDERED: OXYCODONE/ACETAMINOPHEN 5-325 TAB PO PRN
[2017-07-20] MEDS ORDERED: DiphenhydrAMINE HCL 50 MG/ML VIAL IV PRN
[2017-07-20 00:45] VITALS: BP 98/60; PULSE 90; TEMP 37.3; O2SAT 96
[2017-07-20] MEDS: KETOROLAC TROMETHAMINE 30 MG/ML VIAL IV. PRN ×2 (00:45→07:01)
[2017-07-20 04:35] VITALS: BP 95/57; PULSE 81; TEMP 36.5; O2SAT 97
--- NOTE | 2017-07-20 07:20 | Progress Note ---
Subjective Jul 20, 2017. Subjective conversation w/ patient, physical exam, chart review, lab review Ambulation: ambulating normally Voiding: no voiding problems Passing Gas: Yes Diet Tolerance: Regular Diet Lochia: Moderate Feeding Type: Breast Feeding Pain: controlled Review of Systems Respiratory: No shortness of breath Abdomen: No nausea, No vomiting Female : No dysuria Objective Vital Signs Date Time Temp Pulse Resp B/P (MAP) Pulse Ox O2 Delivery O2 Flow Rate FiO2 07/20/17 04:35 36.5 81 16 95/57 (70) 97 Room Air 07/20/17 00:45 96 Room Air 07/20/17 00:45 37.3 90 16 98/60 (73) 96 Room Air 07/19/17 22:15 16 94 07/19/17 21:15 16 96 07/19/17 20:15 18 97 07/19/17 19:40 36.8 72 18 95/61 (72) 98 Room Air 07/19/17 19:15 18 97 07/19/17 18:15 18 97 07/19/17 17:15 16 98 07/19/17 16:15 18 98 07/19/17 15:15 37.3 80 18 94/53 (67) 98 Room Air 07/19/17 15:15 18 98 07/19/17 15:15 98 Room Air 07/19/17 12:20 Room Air 07/19/17 12:20 36.7 83 18 94/56 (69) 98 Room Air 07/19/17 12:20 18 98 Physical Exam General Appearance: WELL-APPEARING, WD/WN, NO APPARENT DISTRESS Respiratory/Chest: lungs clear, normal breath sounds, no respiratory distress Cardiovascular: regular rate, rhythm, no gallop Abdomen: normal bowel sounds, soft Fundus: Firm, Tender (appropriately tender), Relation to Umbilicus (at level of U) Incision Description: Clean, Dry & Intact Extremities: non-tender, normal inspection Laboratory Results Last 24 Hours Test 07/20/17 06:00 Assessment and Plan Post-Op Day#: 1 Continue Routine Care: 27 y o f (now 3) delivered by , + tubal ligation. Prev C/S x 2. O-/GBS-/RI Vital signs reviewed and wnl. Pt's blood pressures tend to run systolic 9-98 and diastolic 57-60. Denies orthostatic symptoms, bleeding is controlled. Hgb 10.3 on admission, today pending. Pt doing well clinically. Encourage ambulation, , control pain with motrin/tylenol. Monitor lochia. Continue routine post care. ALIZA CHAU FMR PGY 1. Resident Physician Supervision Note: I was present with Dr. Chau during the history and exam. I discussed the case with the resident and agree with the findings and plan as documented in the note. Any exceptions or clarifications are listed here: Doing well. routine care. hgb pending . Documented By: Afsaneh Peña Resident Tracking Resident Involvement: Resident Care Provided Care Provided: OB Delivery
[2017-07-20 07:45] VITALS: BP 91/57; PULSE 76; PULSE 77; TEMP 36.8; O2SAT 96; O2SAT 97
--- NOTE | 2017-07-20 07:52 | Discharge Instructions ---
Discharge Instructions Date of Service Jul 20, 2017. Admission Reason for Admission: Previous Section, Desires Sterilization Discharge Discharge Diagnosis / Problem: Section, need for sterilization Discharge Goals Goal(s): Routine recovery after Medications Continue Dispensed Medications: supercream, lansinoh Activity Recommendations Activity Limitations: per Instructions/Follow-up section . Instructions / Follow-Up Instructions / Follow-Up ACTIVITY RECOMMENDATIONS: * Gradual return to full activity over the next 2-3 weeks. * No lifting - nothing heavier than baby over the next 2-3 weeks. * Do not engage in vigorous exercise, sexual activity or sports until cleared by your physician. * Do not drive or operate any motorized equipment until cleared by your physician. * You may shower/bathe daily. MEDICATIONS: For discomfort or pain, you may use Acetaminophen (Tylenol), Ibuprofen (Advil), or Naproxen (Aleve) following the package directions. For constipation you may use Colace following the package directions. BREAST CARE: If you are not breast feeding: * Wear a supportive bra 24 hours a day for one to two weeks. * Avoid stimulating your breasts and nipples as much as possible during the first few weeks after delivery. * When taking a shower, have the warm water hit your back, not breasts. * When your breasts feel full, apply ice packs. Usually three to four times a day helps ease the discomfort. * Take a mild pain medication (Tylenol / Motrin) when you are uncomfortable. If breast feeding: * Use breast milk to lubricate nipples. Lansinoh cream may be used for sore nipples. You do not need to remove cream prior to breast feeding. If using a different brand of cream, check the label for directions regarding removal of cream prior to nursing. * Wear a supportive bra. * If having problems with breasts or breast feeding, call a consultant in ergonomics and safety or your health care provider. SPECIAL CARE INSTRUCTIONS: When you are discharged from the hospital, it is important for you to follow the instructions listed below: * During the first week at home, you should be able to care for yourself and your baby. In addition, the usual light household activities are encouraged. * Limit your activities to the way you feel. Do not try to clean the house or move furniture. Be sensible. * If you actively engage in sports and have done so up until the time of your delivery, you may resume these activities as soon as you feel able. This may take up to one month or even longer. Use good judgment. * Continue to take your vitamins for at least six weeks after the of your baby. * Your diet need not be limited unless you were on a special diet before your delivery. Breast-feeding mothers need around 2500 calories per day and at least 64-80 ounces of fluid per day (8 to 10 glasses). * You should eat foods from the four major food groups. Crash diets or fad diets are to be avoided. Eating lean meats, fresh fruits and vegetables, low-fat dairy products, high fiber foods and a regular exercise program, will help you get back to your pre- weight without putting your health at risk. * Constipation is sometimes a problem after delivery. Take a mild laxative as needed. If breast feeding, Milk of Magnesia is acceptable to use. You may use a suppository or Fleets enema. * A daily shower or tub bath is suggested. Wash incision daily with warm soapy water and pat dry. It doesn't need to be covered unless drainage is present. * A bloody vaginal discharge will usually continue until around four weeks . A small amount of bleeding may continue for as long as six weeks. Vaginal discharge changes from the bright red bleeding after delivery to pink then brownish and finally yellowish-pink before becoming white and disappearing. * Bleeding may increase with activity. Your first period may come in 4-8 weeks. If you are breast feeding, your period may be delayed even longer. * [place] (sex) can begin whenever both you and your partner feel comfortable and do not have any form of genital infection. It is recommended that you wait at least six weeks for internal and external healing to occur. If you have questions, please talk to your health care practitioner. A condom should be used to prevent infection and . * Foreplay, gentle intercourse and lubrication is very important the first several times to prevent pain. A water-based lubricant such as K-Y jelly or Astroglide may be used. * If you have RH negative blood and your baby is RH positive, you will receive RHOGAM by injection prior to discharge. The nurse will give you a card to keep with you that has the date and place that you received RHOGAM after delivery. * During your care, you had a Rubella screen done to check for the presence of rubella antibodies in your blood. If your test was negative, you will receive a Rubella vaccine prior to discharge. This vaccine may cause a fever, soreness at the injection site and flu-like symptoms. If these symptoms persist, notify your health care practitioner. is not advised for one month after a Rubella vaccine. * Verbalizes understanding of car seat law as reviewed with patient nursing. * Car Seat hand-out given and reviewed with patient by nursing. * Shaken baby information reviewed with patient by nursing. Call you doctor if: * Heavy bleeding (saturating several pads an hour) or passing clots the size of your fist. * A fever >101 degrees F (38.3 degrees C) on two occasions four hours apart and /or chills. * Unusual pain in the pelvic or vaginal areas. * Call the doctor for any increased redness, drainage or swelling around the incision and any pain unrelieved by prescribed pain medication. * "Baby Blues" lasting longer than two weeks. If you have any questions or concerns, call your health care practitioner at . FOLLOW UP VISIT: * Please call the office at to schedule a 6 week examination. It is important you keep this appointment. It is important for you to make arrangements for either yearly or twice yearly check-ups thereafter. Current Hospital Diet Patient's current hospital diet: Regular OB Diet Discharge Diet Recommended Diet: Regular OB Diet Procedures Procedures Performed: Repeat Low Transverse Caesarean Section with bilateral tubal ligation Pending Studies Studies pending at discharge: no Medical Emergencies . Who to Call and When: Medical Emergencies: If at any time you feel your situation is an emergency, please call [phone] immediately. . Non-Emergent Contact Non-Emergency issues call your: Primary Care Provider . . "Provider Documentation" section prepared by Sun Chau. . VTE Core Measure Inpt VTE Proph given/why not?: SCD's
[2017-07-20] MEDS: FERROUS SULFATE 325 MG TAB PO SCH (08:05)
[2017-07-20] MEDS: PRENATAL VITAMIN TAB PO SCH (08:05)
[2017-07-20] MEDS: SIMETHICONE 80 MG CHEW PO SCH ×4 (08:05→19:35)
[2017-07-20] MEDS: DOCUSATE SODIUM 100 MG CAP PO SCH ×2 (08:05→19:35)
[2017-07-20 08:38] LABS: BASO % 0.1 %; BASO ABS # 0.01 K/uL (0-0.2); COMPLETE YES; EOS % 0.8 %; IG% 0.3 %; LYMPH ABS # 1.68 K/uL (1.2-3.4); MEAN CELL VOLUME 91.2 fL (80-100); MEAN CORPUSCULAR HEMOGLOBIN 29.6 pg (25-34); MEAN CORPUSCULAR HGB CONC 32.5 g/dl (32-36); MEAN PLATELET VOLUME 9.1 fL (7.4-10.4); MONO % 5.1 %; NEUT % 77.7 %; PLATELET COUNT 198 K/uL (130-400); RED BLOOD COUNT 3.07 M/uL (4.2-5.4)
[2017-07-20] MEDS: OXYCODONE/ACETAMINOPHEN 5-325 TAB PO PRN ×3 (11:46→23:52)
[2017-07-20] MEDS: IBUPROFEN 600 MG TAB PO PRN ×4 (11:47→23:53)
[2017-07-20 15:45] VITALS: BP 97/60; PULSE 76; TEMP 36.8; O2SAT 98
[2017-07-20] MEDS ORDERED: BISACODYL 5 MG TABEC PO ONE (22:00)
[2017-07-20 23:45] VITALS: BP 102/67; PULSE 92; TEMP 37; O2SAT 96
[2017-07-21] MEDS: OXYCODONE/ACETAMINOPHEN 5-325 TAB PO PRN ×2 (06:41→11:59)
[2017-07-21] MEDS: IBUPROFEN 600 MG TAB PO PRN ×2 (06:43→11:59)
[2017-07-21] MEDS: DOCUSATE SODIUM 100 MG CAP PO SCH (07:49)
[2017-07-21] MEDS: SIMETHICONE 80 MG CHEW PO SCH ×2 (07:49→12:00)
[2017-07-21] MEDS: FERROUS SULFATE 325 MG TAB PO SCH (07:50)
[2017-07-21] MEDS: PRENATAL VITAMIN TAB PO SCH (07:50)
[2017-07-21 08:15] VITALS: BP 101/63; PULSE 72; TEMP 36.4; O2SAT 99
--- NOTE | 2017-07-21 08:44 | Progress Note ---
Subjective Jul 21, 2017. Subjective conversation w/ patient, physical exam, lab review Ambulation: ambulating normally Voiding: no voiding problems Passing Gas: Yes Diet Tolerance: Regular Diet Lochia: Small Feeding Type: Breast Feeding Pain: controlled with oral pain meds Objective Vital Signs Date Time Temp Pulse Resp B/P (MAP) Pulse Ox O2 Delivery O2 Flow Rate FiO2 07/20/17 23:45 37.0 92 16 102/67 (79) 96 Room Air 07/20/17 23:45 Room Air 07/20/17 16:15 Room Air 07/20/17 15:45 36.8 76 15 97/60 (72) 98 Room Air Physical Exam General Appearance: WELL-APPEARING, WD/WN, NO APPARENT DISTRESS Abdomen: non tender, soft Fundus: Firm, Non-Tender, Relation to Umbilicus (at u) Incision Description: Clean, Dry & Intact Extremities: non-tender, normal inspection, + pedal edema (trace) Assessment and Plan Problem List Medical Problems: (1) Lower abdominal pain Status: Acute (2) Status: Acute (3) Right lower quadrant abdominal pain Status: Acute (4) Threatened miscarriage Status: Acute Post-Op Day#: 2 Continue Routine Care: Doing well. Plan d/c. Instructions given.
[2017-07-21] MEDS ORDERED: OXYC-57 PO (08:45)
[2017-07-21 12:20] VITALS: BP_DIAS 63; PULSE 72; TEMP 36.4
== END 2017-07-21 13:30 | disposition home or self-care (01) | DRG 766 ==
LOC: C.LD 05:28 → EDSTATUS 07:30 → C.OBG 12:59
PROVIDERS: ADMIT Obstetrics & Gynecology; ATTEND Obstetrics & Gynecology
PROC: 10D00Z1 Extraction of Products of Conception, Low, Open Approach (ICD-10-PCS; principal; 2017-07-19 07:30)
PROC: 0UB70ZZ Excision of Bilateral Fallopian Tubes, Open Approach (ICD-10-PCS; principal; 2017-07-19 07:30)
DX: O34.211 Maternal care for low transverse scar from previous cesarean delivery (principal); Z30.2 Encounter for sterilization; Z87.59 Personal history of other complications of pregnancy, childbirth and the puerperium; Z3A.39 39 weeks gestation of pregnancy; Z37.0 Single live birth

== ENCOUNTER → 2017-08-27 | Outpatient (CLI) | payer OTHER ==
[~2017-08-27] MED LIST changes: +OXYC-57 PO
== END | disposition home or self-care (01) ==
LOC: C.PAPS 13:33
PROVIDERS: ATTEND Obstetrics & Gynecology
DX: Z12.4 Encounter for screening for malignant neoplasm of cervix (principal)

== ENCOUNTER 2017-11-12 13:55 | Emergency (ER) | payer OTHER ==
[~2017-11-12] VITALS: Ht 170.2 cm; Wt 77.0 kg
[2017-11-12 13:57] VITALS: TEMP 36.7; Ht 170.2 cm; Wt 77.0 kg
[2017-11-12] MEDS ORDERED: SODIUM CHLORIDE 0.9% 1000ML 1,000 ML IV STA (14:23)
[2017-11-12 14:45] LABS: BASO % 0.4 %; BASO ABS # 0.02 K/uL (0-0.2); EOS % 6.5 %; EOS ABS # 0.32 K/uL (0-0.5); HEMATOCRIT 38.7 % (37-47); HEMOGLOBIN 12.5 g/dL (12.0-16.0); LYMPH % 42.2 %; LYMPH ABS # 2.09 K/uL (1.2-3.4); MEAN CELL VOLUME 85.1 fL (80-100); MEAN CORPUSCULAR HEMOGLOBIN 27.5 pg (25-34); MEAN CORPUSCULAR HGB CONC 32.3 g/dl (32-36); MEAN PLATELET VOLUME 9.1 fL (7.4-10.4); MONO % 9.5 %; MONO ABS # 0.47 K/uL (0.11-0.59); NEUT % 41.4 %; NEUT ABS # 2.05 K/uL (1.4-6.5); PLATELET COUNT 205 K/uL (130-400); RED CELL DISTRIBUTION WIDTH CV 14.2 % (11.5-14.5); RED CELL DISTRIBUTION WIDTH SD 44.1 fL (36.4-46.3); WHITE BLOOD COUNT 4.95 K/uL (4.8-10.8)
[2017-11-12 15:07] LABS: ALBUMIN 3.5 gm/dl (3.4-5.0); CALCIUM 9.1 mg/dl (8.5-10.1); CREATININE 0.76 mg/dl (0.60-1.20); POTASSIUM 3.7 mmol/L (3.5-5.1)
[2017-11-12 15:10] LABS: TOTAL PROTEIN 7.2 gm/dl (6.4-8.2)
--- NOTE | 2017-11-12 16:56 | DIAGNOSTIC IMAGING REPORT ---
TRANSVAG-FEMALE PELVIS HISTORY: Pain abnormal bleeding, pain COMPARISON: 01/18/2017 FINDINGS: Uterus: 9 cm Endometrial stripe: 12 mm Right ovary: 2.6 cm with normal vascular flow Left ovary: 3 cm with normal vascular flow Miscellaneous:Trace free fluid in the pelvic cul-de-sac IMPRESSION: 1. Mild endometrial prominence at 12 mm. This may be secondary to the secretory phase of the patient's menstrual cycle versus mild hyperplastic change. 2. The remainder of the study is normal The above report was generated using voice recognition software. It may contain grammatical, syntax or spelling errors. Electronically signed by: Kwasi Nichols M.D. 11/12/2017 4:54 PM Dictated Date/Time: 11/12/2017 4:53 PM
--- NOTE | 2017-11-12 17:13 | EMERGENCY ROOM VISIT NOTE ---
History Report prepared by Alla: Valdo Beckham Under the Supervision of: Dr. Shelly Ramos D.O. First contact with patient: 13:59 Chief Complaint: ED VAG BLEEDING Stated Complaint: HEAVY VAGINAL BLEEDING History of Present Illness The patient is a 27 year old female who presents to the Emergency Room with complaints of worsening vaginal bleeding beginning two days ago. She has a history of tubal ligation. The patient states that her bleeding appears normal, it is just much more than usual. She states that she completely bled through a tampon. She called her numerical control programmer regarding her symptoms and was referred to the ED. The patient started her period two days ago. She notes that this was one week late. She states that her periods are typically very regular. The patient also complains of abdominal pain, abdominal bloating, back pain, nausea , dizziness, and lightheadedness. She denies vomiting, urinary symptoms or diarrhea. She denies any bruising. The patient denies recent trauma, or injury. No pain during intercourse. Patient is 4 months . States her for several periods were very light, and this one is now much heavier. Patient was breast-feeding, however stopped approximately 1-2 weeks ago. No recent new sexual partners. Source of History: patient Onset: Two days ago Position: other (vagina) Quality: other (bleeding) Timing: worsening Associated Symptoms: + nausea, + abdominal pain, + back pain, No vomiting, No diarrhea, No urinary symptoms Note: The patient also complains of abdominal bloating, dizziness, and lightheadedness Review of Systems See HPI for pertinent positives & negatives. A total of 10 systems reviewed and were otherwise negative. Past Medical & Surgical Medical Problems: (1) Abdominal cramping affecting , antepartum (2) Active Labor (3) Failure to progress in second stage of labor (4) Intrauterine (5) with 31 completed weeks gestation (6) Uterine cramping Surgical Problems: (1) Bladder Laceration (2) section (3) Previous delivery, antepartum (4) Previous section (5) REPEAT SECTION Family History Patient reports no known family medical history. Social History Smoking Status: Never Smoker Alcohol Use: none Drug Use: none Marital Status: single, in relationship Housing Status: lives with significant other Occupation Status: employed Current/Historical Medications No Active Prescriptions or Reported Meds Allergies Coded Allergies: Azithromycin (Verified Allergy, Unknown, HEART RACING, 3/27/18) Physical Exam Vital Signs Date Time Temp Pulse Resp B/P (MAP) Pulse Ox O2 Delivery O2 Flow Rate FiO2 11/12/17 17:20 59 16 102/62 99 11/12/17 16:30 64 12 98 Room Air 11/12/17 13:57 36.7 63 16 119/76 99 Physical Exam GENERAL: alert, well appearing, well nourished, no distress, non-toxic EYE EXAM: normal conjunctiva, PERRL and EOM's grossly intact OROPHARYNX: no exudate, no erythema, lips, buccal mucosa, and tongue normal and mucous membranes are moist NECK: supple, no nuchal rigidity, no adenopathy, non-tender LUNGS: Clear to auscultation. Normal chest wall mechanics HEART: no murmurs, S1 normal and S2 normal ABDOMEN: abdomen soft, normo-active bowel sounds, no masses, no rebound or guarding. Minimal suprapubic tenderness. BACK: Back is symmetrical on inspection and there is no deformity, no midline tenderness, no CVA tenderness. SKIN: no rashes and no bruising, no petechiae. UPPER EXTREMITIES: upper extremities are grossly normal. Full range of motion, normal pulses. LOWER EXTREMITIES: No pitting edema. Full range of motion, normal pulses. NEURO EXAM: Normal sensorium, cranial nerves II-XII grossly intact, normal speech, no gross weakness of arms, no gross weakness of legs. Medical Decision & Procedures ER Provider Diagnostic Interpretation: Radiology results have been interpreted by the radiologist and reviewed by me. TRANSVAG-FEMALE PELVIS FINDINGS: Uterus: 9 cm Endometrial stripe: 12 mm Right ovary: 2.6 cm with normal vascular flow Left ovary: 3 cm with normal vascular flow Miscellaneous:Trace free fluid in the pelvic cul-de-sac IMPRESSION: 1. Mild endometrial prominence at 12 mm. This may be secondary to the secretory phase of the patient's menstrual cycle versus mild hyperplastic change. 2. The remainder of the study is normal The above report was generated using voice recognition software. It may contain grammatical, syntax or spelling errors. Electronically signed by: Kwasi Nichols M.D. 11/12/2017 4:54 PM Laboratory Results 11/12/17 14:33 Red Blood Count 4.55, Mean Corpuscular Volume 85.1, Mean Corpuscular Hemoglobin 27.5, Mean Corpuscular Hemoglobin Concent 32.3, Mean Platelet Volume 9.1, Neutrophils (%) (Auto) 41.4, Lymphocytes (%) (Auto) 42.2, Monocytes (%) (Auto) 9.5, Eosinophils (%) (Auto) 6.5, Basophils (%) (Auto) 0.4, Neutrophils # (Auto) 2.05, Lymphocytes # (Auto) 2.09, Monocytes # (Auto) 0.47, Eosinophils # (Auto) 0.32, Basophils # (Auto) 0.02 11/12/17 14:33 Test 11/12/17 14:33 White Blood Count 4.95 K/uL (4.8-10.8) Red Blood Count 4.55 M/uL (4.2-5.4) Hemoglobin 12.5 g/dL (12.0-16.0) Hematocrit 38.7 % (37-47) Mean Corpuscular Volume 85.1 fL (80-100) Mean Corpuscular Hemoglobin 27.5 pg (25-34) Mean Corpuscular Hemoglobin Concent 32.3 g/dl (32-36) Platelet Count 205 K/uL (130-400) Mean Platelet Volume 9.1 fL (7.4-10.4) Neutrophils (%) (Auto) 41.4 % Lymphocytes (%) (Auto) 42.2 % Monocytes (%) (Auto) 9.5 % Eosinophils (%) (Auto) 6.5 % Basophils (%) (Auto) 0.4 % Neutrophils # (Auto) 2.05 K/uL (1.4-6.5) Lymphocytes # (Auto) 2.09 K/uL (1.2-3.4) Monocytes # (Auto) 0.47 K/uL (0.11-0.59) Eosinophils # (Auto) 0.32 K/uL (0-0.5) Basophils # (Auto) 0.02 K/uL (0-0.2) RDW Standard Deviation 44.1 fL (36.4-46.3) RDW Coefficient of Variation 14.2 % (11.5-14.5) Immature Granulocyte % (Auto) 0.0 % Immature Granulocyte # (Auto) 0.00 K/uL (0.00-0.02) Prothrombin Time 10.4 SECONDS (9.0-12.0) Prothromb Time International Ratio 1.0 (0.9-1.1) Anion Gap 6.0 mmol/L (3-11) Est Creatinine Clear Calc Drug Dose 119.0 ml/min Estimated GFR () 124.6 Estimated GFR (Non- 107.5 BUN/Creatinine Ratio 14.1 (10-20) Calcium Level 9.1 mg/dl (8.5-10.1) Total Bilirubin 0.3 mg/dl (0.2-1) Aspartate Amino Transf (AST/SGOT) 18 U/L (15-37) Alanine Aminotransferase (ALT/SGPT) 36 U/L (12-78) Alkaline Phosphatase 105 U/L (45-117) Total Protein 7.2 gm/dl (6.4-8.2) Albumin 3.5 gm/dl (3.4-5.0) Globulin 3.7 gm/dl (2.5-4.0) Albumin/Globulin Ratio 0.9 (0.9-2) Human Chorionic Gonadotropin, Qual NEG (NEG) Laboratory results per my review. Medications Administered Medications (Trade) Dose Ordered Sig/[place] Route Start Time Stop Time Status Last Admin Dose Admin Sodium Chloride 1,000 ml @ 999 mls/hr Q1H1M STAT IV 11/12/17 14:23 11/12/17 15:23 DC 11/12/17 14:47 999 MLS/HR ED Course 1414: The patient was evaluated in room C7. A complete history and physical exam was performed. 1705: Upon reevaluation, the patient is feeling better. She would prefer for her OBGYN to perform a pelvic exam. I discussed the findings and the treatment plan with the patient. She verbalizes agreement and understanding. The patient was discharged home. Medical Decision Differential diagnosis: Etiologies such as ectopic , dysfunction uterine bleeding, bleeding dyscrasia, trauma, infection, as well as others were entertained. Patient hemodynamically stable here, reassuring H&H, test negative. Patient's ultrasound with no acute findings. Patient felt improved following IV fluids. Discussed with patient possibly given that she is recently , and also recently stopped breast-feeding, the light. She initially experienced followed by now a heavier and slightly late. Potentially due to fluctuating hormone levels yet as her body is adjusting . Patient had a tubal ligation with the of her last child also. I do not suspect ectopic . Patient with minimal suprapubic tenderness, declined medications here. Discussed with her follow-up with ASSEMBLY DEPARTMENT SUPERVISOR , symptoms to watch and return for. Discussed pelvic exam here, patient deferred and would like to have done by her ASSEMBLY DEPARTMENT SUPERVISOR in follow-up. I felt this was reasonable at this time. I do not suspect acute infectious etiology, PID, TOA, or other vaginal or cervical trauma. Patient well-appearing here throughout with no apparent distress. All questions answered at bedside, patient well-appearing at time of discharge, tolerated p.o., ambulate with a steady gait. Medication Reconcilliation Current Medication List: was personally reviewed by me Blood Pressure Screening Patient's blood pressure: Normal blood pressure Blood pressure disposition: Did not require urgent referral Impression Primary Impression: Dysfunctional uterine bleeding Additional Impression: Menorrhagia Scribe Attestation The scribe's documentation has been prepared under my direction and personally reviewed by me in its entirety. I confirm that the note above accurately reflects all work, treatment, procedures, and medical decision making performed by me. Departure Information Dispostion Home / Self-Care Prescriptions No Active Prescriptions or Reported Meds Referrals Leticia Early D.O. (PCP) Patient Instructions My [facility] Additional Instructions Please call follow-up with your ASSEMBLY DEPARTMENT SUPERVISOR as a precaution. Please drink plenty of fluids. If you develop increased bleeding or passing large clots, develop worsening abdominal pain or back pain, feel dizzy or lightheaded, develop fevers , nausea or vomiting, pain with intercourse, or you have any other new concerns , please return the emergency room. Problem Qualifiers Additional Impression: Menorrhagia Menorrahagia type: with irregular cycle Qualified Codes: N92.1 - Excessive and frequent menstruation with irregular cycle
[2017-11-12 17:20] VITALS: BP 102/62; PULSE 59; O2SAT 99
== END 2017-11-12 17:32 | disposition home or self-care (01) ==
LOC: C.EDB 13:57 → C.EDC 17:32
DX: N92.0 Excessive and frequent menstruation with regular cycle (principal); M54.9 Dorsalgia, unspecified; R10.30 Lower abdominal pain, unspecified; R11.0 Nausea; R42 Dizziness and giddiness; Z98.51 Tubal ligation status; Z88.1 Allergy status to other antibiotic agents

== ENCOUNTER 2019-07-13 18:11 | Inpatient (IN) ==
[2019-07-13] MEDS ORDERED: ACETAMINOPHEN 1,000 MG/100 ML VIAL IV STA (19:01)
[2019-07-13] MEDS ORDERED: SODIUM CHLORIDE 0.9% 1000ML 1,000 ML IV ONE (19:01)
[2019-07-13 19:36] LABS: Basophils # (auto) 0.02 K/uL (0-0.2); Basophils % (auto) 0.3 %; Eosinophils # (auto) 0.05 K/uL (0-0.5); Eosinophils % (auto) 0.7 %; Hematocrit (blood only) 37.9 % (37-47); Hemoglobin 12.5 g/dL (12.0-16.0); Immature Granulocytes # (auto) 0.01 K/uL (0.00-0.02); Immature Granulocytes % (auto) 0.1 %; Lymphocytes # (auto) 2.24 K/uL (1.2-3.4); Lymphocytes % (auto) 30.4 %; Mean Platelet Volume 9.9 fL (7.4-10.4); Monocytes # (auto) 0.57 K/uL (0.11-0.59); Monocytes % (auto) 7.7 %; Neutrophils # (auto) 4.49 K/uL (1.4-6.5); Neutrophils % (auto) 60.8 %; Platelet Count 205 K/uL (130-400); RDW Standard Deviation 43.2 fL (36.4-46.3); Red Blood Count 4.46 M/uL (4.2-5.4); White Blood Count 7.38 K/uL (4.8-10.8)
[2019-07-13 19:52] LABS: Albumin Level 3.8 gm/dl (3.4-5.0); BUN Creatinine Ratio 12.7 (10-20); Calcium 9.4 mg/dl (8.5-10.1); Creatinine Clr Calc Pharmacy 99.7 ml/min; Est GFR (African American) 102.9; Est GFR (Non-African American) 88.8; Potassium 3.6 mmol/L (3.5-5.1); Pregnancy Test, Serum Negative (Negative)
[2019-07-13 19:54] LABS: Bilirubin,Total 0.3 mg/dl (0.2-1); Total Protein 7.8 gm/dl (6.4-8.2)
[2019-07-13 20:09] LABS: Appearance Urine Cloudy (Clear); Bacteria Urine Automated 1+ (Negative); Bilirubin Urine Negative (Negative); Blood Urine Negative (Negative); Color Urine Dark Yellow; Epithelial Cell Urine Auto >30 /lpf (0-5); Glucose Urine UA Negative (Negative); Ketones Urine Trace (Negative); Leukocyte Esterase Urine Trace (Negative); Nitrite Urine Negative (Negative); Protein Urine Negative (Negative); Specific Gravity Urine 1.031 (1.000-1.030); Urobilinogen Urine Negative (Negative)
[2019-07-13 20:50] LABS: Amphetamines+Metham, Urine Neg (Neg); Barbiturates, Urine Neg (Neg); Benzodiazepine, Urine Neg (Neg); Cocaine, Urine Neg (Neg); MDMA (Ecstacy), Urine Neg (Neg); Methadone, Urine Neg (Neg); Opiate, Urine Neg (Neg); Phencyclidine, Urine Neg (Neg)
--- NOTE | 2019-07-13 21:07 | Emergency Department Note ---
Entered by Joyce Vazquez acting as a scribe for Gerry Dalton MD History of Present Illness General Chief complaint: Abdominal Pain Stated complaint: SEVERE STOMACH PAIN,ANXIETY,BURNING SENSATION Time Seen by Provider: 07/13/19 18:47 Source: patient History of Present Illness Onset (ago): hour(s) (several) Location: abdomen (generalized ) Pain Consistency: + other (persistent ) Maximum Pain Intensity: 5 Quality: + other (burning; "butterflies x10") Associated symptoms: + nausea/vomiting (positive nausea; negative vomiting) and + other (positive randomly crying; positive thoughts of suicide; negative suicide plan; negative history of self harm; negative diarrhea; positive less sleep; positive decreased eating ) Treatments prior to arrival: other (Zoloft; Omeprazole ) The patient is a 29 year old female with no significant PMHx who presents to the Emergency Room with complaints of persistent generalized abdominal pain that began this morning, several hours prior to arrival. The patient describes this as a "burning sensation" and "butterflies x10" that spread through her whole body. The patient reports nausea during this time but denies vomiting and diarrhea. The patient states that she has been randomly crying for no reason recently, and states that she has had occasional thoughts of suicide without a plan. The patient denies any history of self harm and denies any previous hospitalization for depression or suicidal ideations. She states that she was put on Zoloft on , 4 days ago, and states that she took this last night before bed. The patient states that she also took Omeprazole last night before bed, stating that this was the first time in approximately 6 weeks that she has taken Omeprazole. The patient states that this is the 4th antidepressant medication that she has been on in the past several weeks. She reports getting less sleep and eating less recently. Home Medications Home Medications Medication Instructions Recorded Confirmed Type sertraline 25 mg tablet 25 mg PO DAILY #30 tab 07/08/19 07/13/19 Rx omeprazole 20 mg PO DAILY 07/13/19 07/13/19 History Allergies Allergy/AdvReac Type Severity Reaction Status Date / Time azithromycin Allergy Unknown Verified 07/08/19 10:02 erythromycin base AdvReac HEART Verified 07/08/19 10:02 RACING Past Med/Surg History Medical History Abdominal cramping affecting , antepartum Migraine with aura PMS (premenstrual syndrome) Surgical History Previous delivery, antepartum Family History Other No pertinent family history in first degree relatives Social History Preferred Language: [place] Feels Safe at Home: Yes Smoking Status: Never smoker Review of Systems See HPI for pertinent positives & negatives. and A total of 10 systems reviewed and were otherwise negative Physical Exam Vital Signs Vital Signs - 24 hr 07/13/19 18:22 07/13/19 20:14 07/13/19 22:40 Temperature 36.8 C Temperature Source Oral Pulse Rate 76 Pulse Rate [Apical] 79 70 Respiratory Rate 20 18 18 Respiratory Effort / Characteristics Non-Labored Respiratory Depth Normal Blood Pressure 119/77 Blood Pressure [Right Arm] 110/74 113/76 Blood Pressure Mean 91 Blood Pressure Mean [Right Arm] 86 88 Pulse Oximetry 99 99 99 Oxygen Delivery Method Room Air Room Air Sepsis Recent Fever Within 48 Hours No Sepsis Action Taken by Nursing No Action Required GENERAL: Patient is in no acute distress. HEENT: No acute trauma, normocephalic atraumatic, mucous membranes moist, no nasal congestion, no scleral icterus. NECK: No stridor, no adenopathy, no meningismus, trachea is midline. LUNGS: Clear to auscultation bilaterally, no wheeze, no rhonchi, breath sounds equal. HEART: Without murmurs gallops or rubs, regular rate and rhythm. ABDOMEN: Diffusely mildly tender. Soft, bowel sounds positive, no hernias, no peritonitis. EXTREMITIES: No cyanosis or edema, full range of motion of all the joints wit hout pain or difficulty, no signs for acute trauma. NEUROLOGIC: Oriented x 3, no acute motor or sensory deficits, no focal weakness. SKIN: No rash, no jaundice, no diaphoresis. PSYCH: Admits to depression. Admits to fleeting suicidal thoughts without any intent or plan. Admits to poor sleep. Course Course 1848: Past medical records reviewed. The patient was evaluated in room B5. A complete history and physical exam was performed. 1899: The psychiatric case briefer will come to evaluate the patient. 1951: Per Cipriano, the psychiatric case briefer, the patient admitted to suicidal thoughts with a plan to overdose on pills. 2135: I checked on and updated the patient. She states that she is doing well. 2152: I talked to the psych case briefer, the patient is medically cleared. Patient has been accepted to our [facility] facility, [address]. Administered Medications Discontinued Medications Sodium Chloride (Nss 1000ml) 1,000 mls @ 999 mls/hr IV .Q1H1M ONE Stop: 07/13/19 20:01 Last Infusion: 07/13/19 20:15 Dose: 0 mls/hr Documented by: [id number] Admin: 07/13/19 19:15 Dose: 999 mls/hr Documented by: [id number] Acetaminophen (Ofirmev) 1,000 mg in 100 mls @ 400 mls/hr IV NOW STA Stop: 07/13/19 19:15 Last Infusion: 07/13/19 20:15 Dose: 0 mls/hr Documented by: [id number] Admin: 07/13/19 19:15 Dose: 400 mls/hr Documented by: [id number] Medical Decision Making Differential Diagnosis Differential diagnoses include medication reaction, anxiety, depression, gastritis, ulcer, , UTI, dehydration, electrolyte imbalance, and others were considered. Medical Records Attestation: I reviewed the patient's medical records. Home Medications Current Medication List: was personally reviewed by me Laboratory Data Attestation: I reviewed the patient's lab results. Result diagrams: 07/13/19 19:11 07/13/19 19:11 Lab Results 07/13/19 07/13/19 07/13/19 Range/Units 19:11 19:11 19:11 WBC 7.38 (4.8-10.8) K/uL RBC 4.46 (4.2-5.4) M/uL Hgb 12.5 (12.0-16.0) g/dL Hct 37.9 (37-47) % MCV 85.0 (80-100) fL MCH 28.0 (25-34) pg MCHC 33.0 (32-36) g/dL RDW Std Deviation 43.2 (36.4-46.3) fL RDW Coeff of Joaquin 14.0 (11.5-14.5) % Plt Count 205 (130-400) K/uL MPV 9.9 (7.4-10.4) fL Immature Gran % (Auto) 0.1 % Neut % (Auto) 60.8 % Lymph % (Auto) 30.4 % [place] % (Auto) 7.7 % Eos % (Auto) 0.7 % Baso % (Auto) 0.3 % Immature Gran # (Auto) 0.01 (0.00-0.02) K/uL Neut # (Auto) 4.49 (1.4-6.5) K/uL Lymph # (Auto) 2.24 (1.2-3.4) K/uL [place] # (Auto) 0.57 (0.11-0.59) K/uL Eos # (Auto) 0.05 (0-0.5) K/uL Baso # (Auto) 0.02 (0-0.2) K/uL Sodium 142 (136-145) mmol/L Potassium 3.6 (3.5-5.1) mmol/L Chloride 110 H (98-107) mmol/L Carbon Dioxide 25 (21-32) mmol/L Anion Gap 7.0 (3-11) BUN 11 (7-18) mg/dl Creatinine 0.88 (0.6-1.2) mg/dl Est Cr Clr Drug Dosing 99.7 ml/min Est GFR ( Amer) 102.9 Est GFR (Non-Af Amer) 88.8 BUN/Creatinine Ratio 12.7 (10-20) Glucose 102 H (70-99) mg/dl Calcium 9.4 (8.5-10.1) mg/dl Total Bilirubin 0.3 (0.2-1) mg/dl AST 9 L (15-37) U/L ALT 20 (12-78) U/L Alkaline Phosphatase 84 (45-117) U/L Total Protein 7.8 (6.4-8.2) gm/dl Albumin 3.8 (3.4-5.0) gm/dl Globulin 4.0 (2.5-4.0) gm/dl Albumin/Globulin Ratio 1.0 (0.9-2) Lipase 237 (73-393) U/L TSH 1.070 (0.300-4.500) uIu/ml HCG, Qual Negative (Negative) Urine Color Urine Appearance (Clear) Urine pH (4.5-7.5) Ur Specific [place] (1.000-1.030) Urine Protein (Negative) Urine Glucose (UA) (Negative) Urine Ketones (Negative) Urine Blood (Negative) Urine Nitrite (Negative) Urine Bilirubin (Negative) Urine Urobilinogen (Negative) Ur Leukocyte Esterase (Negative) Urine WBC (Auto) (0-5) /hpf Urine RBC (Auto) (0-4) /hpf U Hyaline Cast (Auto) (0-5) /lpf U Epithel Cells (Auto) (0-5) /lpf Urine Bacteria (Auto) (Negative) Salicylates (2.8-20) mg/dl Urine Opiates Screen (Neg) Ur Methadone, Qual (Neg) Acetaminophen (10-30) ug/ml Urine Barbiturates (Neg) Ur Phencyclidine (PCP) (Neg) U Amphetamin/Meth Scrn (Neg) MDMA (Ecstasy) Screen (Neg) U Benzodiazepines Scrn (Neg) Ur Cocaine Metabolite (Neg) U Marijuana (THC) Screen (Neg) Ethyl Alcohol mg/dL (0-3) mg/dl 07/13/19 07/13/19 07/13/19 Range/Units 19:11 19:11 21:14 WBC (4.8-10.8) K/uL RBC (4.2-5.4) M/uL Hgb (12.0-16.0) g/dL Hct (37-47) % MCV (80-100) fL MCH (25-34) pg MCHC (32-36) g/dL RDW Std Deviation (36.4-46.3) fL RDW Coeff of Joaquin (11.5-14.5) % Plt Count (130-400) K/uL MPV (7.4-10.4) fL Immature Gran % (Auto) % Neut % (Auto) % Lymph % (Auto) % [place] % (Auto) % Eos % (Auto) % Baso % (Auto) % Immature Gran # (Auto) (0.00-0.02) K/uL Neut # (Auto) (1.4-6.5) K/uL Lymph # (Auto) (1.2-3.4) K/uL [place] # (Auto) (0.11-0.59) K/uL Eos # (Auto) (0-0.5) K/uL Baso # (Auto) (0-0.2) K/uL Sodium (136-145) mmol/L Potassium (3.5-5.1) mmol/L Chloride (98-107) mmol/L Carbon Dioxide (21-32) mmol/L Anion Gap (3-11) BUN (7-18) mg/dl Creatinine (0.6-1.2) mg/dl Est Cr Clr Drug Dosing ml/min Est GFR ( Amer) Est GFR (Non-Af Amer) BUN/Creatinine Ratio (10-20) Glucose (70-99) mg/dl Calcium (8.5-10.1) mg/dl Total Bilirubin (0.2-1) mg/dl AST (15-37) U/L ALT (12-78) U/L Alkaline Phosphatase (45-117) U/L Total Protein (6.4-8.2) gm/dl Albumin (3.4-5.0) gm/dl Globulin (2.5-4.0) gm/dl Albumin/Globulin Ratio (0.9-2) Lipase (73-393) U/L TSH (0.300-4.500) uIu/ml HCG, Qual (Negative) Urine Color Dark Yellow Urine Appearance Cloudy A (Clear) Urine pH 6.0 (4.5-7.5) Ur Specific [place] 1.031 H (1.000-1.030) Urine Protein Negative (Negative) Urine Glucose (UA) Negative (Negative) Urine Ketones Trace H (Negative) Urine Blood Negative (Negative) Urine Nitrite Negative (Negative) Urine Bilirubin Negative (Negative) Urine Urobilinogen Negative (Negative) Ur Leukocyte Esterase Trace H (Negative) Urine WBC (Auto) 5-10 H (0-5) /hpf Urine RBC (Auto) 10-30 H (0-4) /hpf U Hyaline Cast (Auto) 1-5 (0-5) /lpf U Epithel Cells (Auto) >30 H (0-5) /lpf Urine Bacteria (Auto) 1+ H (Negative) Salicylates < 1.7 L (2.8-20) mg/dl Urine Opiates Screen Neg (Neg) Ur Methadone, Qual Neg (Neg) Acetaminophen 12 (10-30) ug/ml Urine Barbiturates Neg (Neg) Ur Phencyclidine (PCP) Neg (Neg) U Amphetamin/Meth Scrn Neg (Neg) MDMA (Ecstasy) Screen Neg (Neg) U Benzodiazepines Scrn Neg (Neg) Ur Cocaine Metabolite Neg (Neg) U Marijuana (THC) Screen Neg (Neg) Ethyl Alcohol mg/dL (0-3) mg/dl 07/13/19 Range/Units 21:14 WBC (4.8-10.8) K/uL RBC (4.2-5.4) M/uL Hgb (12.0-16.0) g/dL Hct (37-47) % MCV (80-100) fL MCH (25-34) pg MCHC (32-36) g/dL RDW Std Deviation (36.4-46.3) fL RDW Coeff of Joaquin (11.5-14.5) % Plt Count (130-400) K/uL MPV (7.4-10.4) fL Immature Gran % (Auto) % Neut % (Auto) % Lymph % (Auto) % [place] % (Auto) % Eos % (Auto) % Baso % (Auto) % Immature Gran # (Auto) (0.00-0.02) K/uL Neut # (Auto) (1.4-6.5) K/uL Lymph # (Auto) (1.2-3.4) K/uL [place] # (Auto) (0.11-0.59) K/uL Eos # (Auto) (0-0.5) K/uL Baso # (Auto) (0-0.2) K/uL Sodium (136-145) mmol/L Potassium (3.5-5.1) mmol/L Chloride (98-107) mmol/L Carbon Dioxide (21-32) mmol/L Anion Gap (3-11) BUN (7-18) mg/dl Creatinine (0.6-1.2) mg/dl Est Cr Clr Drug Dosing ml/min Est GFR ( Amer) Est GFR (Non-Af Amer) BUN/Creatinine Ratio (10-20) Glucose (70-99) mg/dl Calcium (8.5-10.1) mg/dl Total Bilirubin (0.2-1) mg/dl AST (15-37) U/L ALT (12-78) U/L Alkaline Phosphatase (45-117) U/L Total Protein (6.4-8.2) gm/dl Albumin (3.4-5.0) gm/dl Globulin (2.5-4.0) gm/dl Albumin/Globulin Ratio (0.9-2) Lipase (73-393) U/L TSH (0.300-4.500) uIu/ml HCG, Qual (Negative) Urine Color Urine Appearance (Clear) Urine pH (4.5-7.5) Ur Specific [place] (1.000-1.030) Urine Protein (Negative) Urine Glucose (UA) (Negative) Urine Ketones (Negative) Urine Blood (Negative) Urine Nitrite (Negative) Urine Bilirubin (Negative) Urine Urobilinogen (Negative) Ur Leukocyte Esterase (Negative) Urine WBC (Auto) (0-5) /hpf Urine RBC (Auto) (0-4) /hpf U Hyaline Cast (Auto) (0-5) /lpf U Epithel Cells (Auto) (0-5) /lpf Urine Bacteria (Auto) (Negative) Salicylates (2.8-20) mg/dl Urine Opiates Screen (Neg) Ur Methadone, Qual (Neg) Acetaminophen (10-30) ug/ml Urine Barbiturates (Neg) Ur Phencyclidine (PCP) (Neg) U Amphetamin/Meth Scrn (Neg) MDMA (Ecstasy) Screen (Neg) U Benzodiazepines Scrn (Neg) Ur Cocaine Metabolite (Neg) U Marijuana (THC) Screen (Neg) Ethyl Alcohol mg/dL < 3.0 (0-3) mg/dl MDM Narrative There is no leukocytosis or concerning anemia. No significant electrolyte abnormality or kidney failure. No liver enzyme elevation. No evidence for pancreatitis. testing was negative. Patient appeared to be in a euthyroid state. Urinalysis showed some contamination, no infection. Urine tox was negative. Aspirin, Tylenol and alcohol levels were not significantly elevated. On exam, the patient had diffuse mild tenderness across the abdomen, she was not febrile, she was not toxic. She was tearful at times discussing her situation and her recent history. The patient was given IV Tylenol for pain. She received IV saline, 1 L. I did have the patient seen by psychiatry case management. Patient was more forthcoming and admitted to some suicidal thoughts with a potential plan to overdose. She did agree to a voluntary psychiatric hospital stay. I think the patient's depression is the major reason for her persistent abdominal complaints. Nothing has been found from a medical standpoint to explain her symptoms. I do think continuing the omeprazole would be reasonable in case she does have a component of gastritis or early ulcer. I spoke to the patient, case management has been involved. [facility] She will be hospitalized voluntarily on 3 S. Impression & Plan Suicidal ideation, Depression, Diffuse abdominal pain Discharge Plan Visit Data Chief Complaint: Abdominal Pain Stated Complaint: SEVERE STOMACH PAIN,ANXIETY,BURNING SENSATION ED Provider: Gerry Dalton Discharge Problem: Suicidal ideation, Depression, Diffuse abdominal pain Forms Stand Alone Forms: My [facility] [employer] Prescriptions Prescriptions: No Action sertraline [Zoloft] 25 mg tablet 25 mg PO DAILY Qty: 30 RF: 2 omeprazole 20 mg capsule,delayed release(DR/EC) 20 mg PO DAILY RF: 0 Discharge Problem: Depression Qualifiers: Depression Type: unspecified Qualified Code(s): F32.9 - Major depressive disorder, single episode, unspecified The scribe's documentation has been prepared under my direction and personally reviewed by me in its entirety. I confirm that the note above accurately reflects all work, treatment, procedures, and medical decision making performed by me.
[2019-07-13 21:46] LABS: Acetaminophen 12 ug/ml (10-30); Salicylate < 1.7 mg/dl (2.8-20)
[2019-07-13 22:18] LABS: Thyroid Stimulating Hormone 1.07 uIu/ml (0.300-4.500)
[2019-07-14] MEDS ORDERED: SODIUM CHLORIDE 0.65% NA SOLN 45 ML (OCEAN) PRN (00:59)
[2019-07-14] MEDS ORDERED: ACETAMINOPHEN 325 MG TAB PO PRN (00:59)
[2019-07-14] MEDS ORDERED: BISMUTH SUBSALICYLATE PER ML OMNICELL CHARGE PO PRN (00:59)
[2019-07-14] MEDS ORDERED: MAGNESIUM HYDROXIDE SUSP 30 ML UDC PO PRN (00:59)
[2019-07-14] MEDS ORDERED: ALUMINUM/MAGNESIUM SUSP 30 ML UDC PO PRN (00:59)
--- NOTE | 2019-07-14 09:16 | History & Physical ---
Date of Service July 14, 2019 Impression / Recommendations Impression 29-year-old partnered female who has a history of depression and anxiety treated for the past several months by her PCP and SALES AND RETAIL MANAGEMENT RECRUITER with several different antidepressant trials, all of which were discontinued quickly due to intolerable side effects. She has lost hannah in the SSRIs and would like to try a different class of medication, and agreed to a trial of venlafaxine XR. She describes initial depressive symptoms several months ago, and then developed anxiety symptoms (MOLLY and panic). Her symptoms are not entirely classic of major depression and MOLLY, and although she describes some increased anxiety/activation on some of the antidepressants, there does not appear to be a bipolar diathesis based on her description. However, we will need to be alert for side effects given her history of sensitivity and monitor closely for mood destabilization. 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 She would likely benefit from outpatient psychiatric care and therapy, and a plan to increase socialization and supports, with respite from childcare duties. Inpatient treatment is medically necessary due to the severity of symptoms and risk for suicide if discharged prematurely. (1) Suicidal ideation: 07/14 -continue hospitalization on a voluntary basis. -Suicide checks for safety. -Denies access to guns, and denies a stash of medications at home. Scheduled family meeting with shara, and review safety recommendations/discharge safety plan. Present on Admission?: Yes (2) Depression: 07/14 -patient reports several months of worsening mood symptoms, and multiple failed antidepressant trials due to intolerable side effects. Reviewed diagnosis and treatment recommendations, including medications and therapy, behavioral interventions, increase socialization, and role of self-care. -She is tried bupropion and 3 different SSRIs, all of which caused intolerable side effects. Discussed options of retrial of sertraline 12.5 mg daily with a slower titration, versus a trial of a different type of antidepressant, namely venlafaxine XR. Reviewed risks, benefits, and potential side effects, and provided her with an UpToDate patient handout about the medication. She has multiple appropriate questions, and agreed to a trial. We will start at low- dose 37.5 mg daily, and titrate slowly. -Continue hydroxyzine 50 mg nightly as needed sleep, and 25 mg as needed for anxiety. -Encourage group attendance and participation. -Refer for outpatient psychiatric care and individual therapy. Depression Type: major depressive disorder Major depression recurrence: single episode Active/Remission status: currently active Major depression episode severity: severe Psychotic features: without psychotic features Qualified Code(s): F32.2 - Major depressive disorder, single episode, severe without psychotic features Present on Admission?: Yes (3) Anxiety: Anxiety NOS, with symptoms of MOLLY and panic which have developed over the past 1-2 months in the context of first episode of depression. Symptoms are worse in the premenstrual phase, but present most days of the month. Medication adjustments as above. Work on healthy coping skills and behavioral techniques for managing anxiety. Present on Admission?: Yes (4) GERD (gastroesophageal reflux disease): Resume home dose of omeprazole; recent GERD symptoms likely due to skipping doses. Present on Admission?: Yes Inventory Assets Strengths: Motivated for treatment, supportive family Needs: Outpatient therapy and psychiatric care, increase socialization Risk Factors Assessment Male: No : Yes Do You Have Access To A Gun?: No Health Problems: Yes Mental Health Diagnoses: Yes Substance Use Disorders: No Previous Attempt: No Family History of Suicide: No Previous Psychiatric Hospitalization: No Hopelessness: Yes Smoker: No Protective Factors Assessment : No (But living with fiwilner) Responsible for Young Children: Yes Employed: No Stable Relationships: Yes Supportive Family: Yes Psychiatric History Identifying Data NICOLE ALMAZAN is a 29-year-old F who currently lives in [place], has a history of depression treated by her SALES AND RETAIL MANAGEMENT RECRU[employer], and was admitted on 07/13/19 22:52 on a 201 voluntary commitment for worsening depression and suicidal ideation with thoughts to overdose on medications. Chief Complaint "I think it was back in March, had a little bit of depression...". History of Present Illness To the ER 07/13/2019 with complaints of abdominal pain. During the assessment, she also endorsed worsening mood and suicidal thoughts to overdose on medication. She has had numerous antidepressant medication trials over the past several weeks, and experienced side effects to multiple medications. She had just started sertraline 25 mg daily 4 days prior to presentation. She was unable to contract for safety outside of the hospital, and agreed to voluntary admission. Labs in the ER were notable for chloride 110, glucose 102, AST of 9, normal TSH, negative test and drug screen. Urinalysis was cloudy, elevated specific gravity, trace ketones and leukocyte esterase, 5-10 WBCs, 10- 30 RBCs, > 30 epithelial cells, and 1+ bacteria. Urine culture is pending. On my assessment, she reports she developed depression in 03/2019, with low mood, decreased energy and motivation, wasn't interacting with her young son. She saw her PCP who started bupropion XL, but felt "too bouncy, like I drank too much caffeine," so stopped it after a few days. She was then seen in the ER last month for reflux, was started on Protonix, which caused diarrhea. She DrKassy Thomas at [facility], who changed her to omeprazole, and also reported depression and anxiety so was started on fluoxetine and hydroxyzine prn. She felt stressed by her son's behavior as he "has his terrible twos early," and her fiance works a lot so wasn't home yet, so she was taking care of all three kids alone. She took fluoxetine for a couple of days but stopped it as felt "I had brain fog, couldn't concentrate or function." She was using hydroxyzine at night which helped "take the edge off" and with sleep. She then saw a PA at [facility], Jackie Varela, in early May. and reported feeling tired, anxious, "like my insides were racing," and says she had lab workup that showed anemia, but TSH and electrolytes were normal. She was started on paroxetine and felt "really jittery, like I drank a whole pot of coffee," and then "like my whole body was on fire." She stopped it after a few days, but had ongoing symptoms for about a week. Anxiety returned about 2 weeks ago, with above symptoms, which she thought was due to hormone levels, so saw her OB-[employer] DISTRIBUTOR [employer] - per review of outpatient records, she was seen by ANGELITO Lyon on 07/08/2019 with reports of feeling nervous and shaky. She endorsed a sensation of her heart racing, feeling emotional, difficulty sleeping, headache, dizziness, and impaired concentration for the past month. She was started on sertraline 25 mg daily, with follow-up in 6 weeks. She started the medication about 6 days ago, starting with 12.5mg, and after a few days increased to 25mg HS, and woke up in the middle of the night with mind racing, "a burning sensation in the pit of my stomach, like butterflies, when you're nervous." Yesterday she had abdominal pain, nausea, and heartburn, so came to the ER. She did not take omeprazole yesterday because she read online that it can cause weird dreams and dizziness, and thought maybe it was contributing to her anxiety symptoms. It has been effective for reflux when she takes it. She reports worsening anxiety, "nervousness I can't control," with heart racing "for no reason," "my insides felt like they were racing, working faster than they should be." Estimates these symptoms have been present 50-75% of the time for the past month. Alleviated by self soothing, exacerbated by stress. Reports panic attacks with intense fear, anxiety, tearfulness, and physical symptoms that last 10-20 minutes. These started about a month ago and occur 3-4 times a week. Denies triggers. Denies h/o worrying excessively, but has been worrying more recently, due to concern about her symptoms and thinking that something is wrong or that her symptoms will come back. Thinks low mood started first, and then developed anxiety symptoms. Mood has been "up and down," sometimes changing from minute to minute during the say. Some days feels more tired, sad, anxious, and other days feels good. More bad days than good. Endorses tearfulness "for no reason," energy and motivation are low, denies anhedonia but interest is decreased, sleep is decreased, and appetite decreased with 10 lb weight loss in the past month. Suicidal thoughts started last month, initially fleeting and passive "when I had flare ups," but increased in frequency and intensity, thinking about ending her life so she wouldn't have to feel so uncomfortable. She threw out the discontinued medications, so doesn't have a large stash of meds at home. Denies significant irritability, anger outbursts, emanuel, OCD, psychosis, and PTSD. 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 Past Psychiatric History Previous Psych History: Has never seen a psychiatrist or therapist. Symptoms of depression and anxiety have been treated by various OP clinicians (her PCP, a PA at [facility], and SALES AND RETAIL MANAGEMENT RECRUITER nurse practitioner at [facility]) for the past 3 months. Current Psychiatric Diagnosis: depression and anxiety Outpatient Services: Recently referred for therapy at [facility]. Has never seen a psychiatrist. Previous Psych Admissions: None Do You Have Access To A Gun?: No History of Previous Suicide Attempt: No Past Medication Trials: Paroxetine -stopped after 2 days due to hot flashes Fluoxetine - "brain foggy" Bupropion XL - 03/2019, felt "too bouncy," so stopped after a few days Hydroxyzine Additional Notes: PCP: Dr. Jaun Monroe at [facility] SALES AND RETAIL MANAGEMENT RECRUITER: ANGELITO Lyon physician group Status post tubal ligation. Allergies Allergy/AdvReac Type Severity Reaction Status Date / Time azithromycin Allergy Unknown Verified 07/08/19 10:02 erythromycin base AdvReac HEART Verified 07/08/19 10:02 RACING Home Medications Home Medications Medication Instructions Recorded Confirmed Type sertraline 25 mg tablet 25 mg PO DAILY #30 tab 07/08/19 07/13/19 Rx omeprazole 20 mg PO DAILY 07/13/19 07/13/19 History Family History Family History of: Depression (Father) Alcohol History Hx of Alcohol Use Over the Past 12 Months: No AUDIT Total Score: 0 Smoking Use Have You Smoked or Used Tobacco Products in the Last 30 Days: No Smoking Status: Never smoker Substance History Hx of Prescription Med Misuse Over the Past 12 Months: No Hx of Over the Counter Med Misuse Over the Past 12 Months: No Hx of Inhalent Misuse Over the Past 12 Months: No Hx of Organic Substance Use Over the Past 12 Months: No Hx of Illegal Substances/Street Drug Use Over Past 12 Months: No Problems as a Result of Past Substance Use: None Identified Personal History Living Arrangements: Home Living Arrangements Comments: In [place] with markus and their 3 young children. Childhood: Grew up in [place]. Only child, raised by both parents, reports good relationship. 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 Other Number Of Children: 3 Beliefs That Will Affect Care: None Hx Legal Problems: No Hx Traumatic Life Events: No Patient History Medical History (Updated 07/14/19 @ 10:17 by Danay Méndez MD) Abdominal cramping affecting , antepartum Anxiety GERD (gastroesophageal reflux disease) Migraine with aura PMS (premenstrual syndrome) Surgical History Previous delivery, antepartum Family History Other No pertinent family history in first degree relatives Social History Preferred Language: [place] Communication Ability: Effective Zigzag Appliquer Required: No Beliefs That Will Affect Care: None Feels Safe at Home: Yes Smoking Status: Never smoker Review of Systems Review of Systems: All systems reviewed & are unremarkable except as noted in HPI & below Physical Exam Psychiatric: Orientation: alert, oriented x 3 and cooperative Apperance: appropriately dressed, appropriately groomed and appeared stated age Eye Contact: good eye contact Motor Behavior: steady gait and station and no abnormal motor movements Speech: normal rate/rhythm/volume of speech Affect: + depressed affect, + anxious affect and mood congruent with affect Mood: + depressed mood and + anxious mood Thought Process: goal directed thought process Thought Content: reality based without delusions Suicidal Thoughts: + reports suicidal thoughts Homicidal Thoughts: denies homicidal thoughts Hallucinations: no auditory hallucinations and no visual hallucinations Cognition: recent memory grossly intact, attention grossly intact and language grossly intact Insight: + fair insight Judgement: + fair judgement Vital Signs (Past 24 Hours): Last Vital Signs Temp 36.8 C 07/14/19 06:42 Pulse 79 07/14/19 06:43 Resp 18 07/14/19 06:42 BP 103/63 07/14/19 06:43 Pulse Ox 99 07/13/19 23:10 Exam Statement: A physical exam was performed in the ER prior to admission to the unit by Dr. Gerry Dalton. I accept that physical as correct/medical clearance for the inpatient physical exam. Results & Data Laboratory Results Laboratory Results - last 24 hr 07/13/19 07/13/19 07/13/19 19:11 19:11 19:11 WBC 7.38 RBC 4.46 Hgb 12.5 Hct 37.9 MCV 85.0 MCH 28.0 MCHC 33.0 RDW Std Deviation 43.2 RDW Coeff of Joaquin 14.0 Plt Count 205 MPV 9.9 Immature Gran % (Auto) 0.1 Neut % (Auto) 60.8 Lymph % (Auto) 30.4 [place] % (Auto) 7.7 Eos % (Auto) 0.7 Baso % (Auto) 0.3 Immature Gran # (Auto) 0.01 Neut # (Auto) 4.49 Lymph # (Auto) 2.24 [place] # (Auto) 0.57 Eos # (Auto) 0.05 Baso # (Auto) 0.02 Sodium 142 Potassium 3.6 Chloride 110 H Carbon Dioxide 25 Anion Gap 7.0 BUN 11 Creatinine 0.88 Est Cr Clr Drug Dosing 99.7 Est GFR ( Amer) 102.9 Est GFR (Non-Af Amer) 88.8 BUN/Creatinine Ratio 12.7 Glucose 102 H Calcium 9.4 Total Bilirubin 0.3 AST 9 L ALT 20 Alkaline Phosphatase 84 Total Protein 7.8 Albumin 3.8 Globulin 4.0 Albumin/Globulin Ratio 1.0 Lipase 237 TSH 1.070 HCG, Qual Negative Urine Color Urine Appearance Urine pH Ur Specific Avinger Urine Protein Urine Glucose (UA) Urine Ketones Urine Blood Urine Nitrite Urine Bilirubin Urine Urobilinogen Ur Leukocyte Esterase Urine WBC (Auto) Urine RBC (Auto) U Hyaline Cast (Auto) U Epithel Cells (Auto) Urine Bacteria (Auto) Salicylates Urine Opiates Screen Ur Methadone, Qual Acetaminophen Urine Barbiturates Ur Phencyclidine (PCP) U Amphetamin/Meth Scrn MDMA (Ecstasy) Screen U Benzodiazepines Scrn Ur Cocaine Metabolite U Marijuana (THC) Screen Ethyl Alcohol mg/dL 07/13/19 07/13/19 07/13/19 19:11 19:11 21:14 WBC RBC Hgb Hct MCV MCH MCHC RDW Std Deviation RDW Coeff of Joaquin Plt Count MPV Immature Gran % (Auto) Neut % (Auto) Lymph % (Auto) [place] % (Auto) Eos % (Auto) Baso % (Auto) Immature Gran # (Auto) Neut # (Auto) Lymph # (Auto) [place] # (Auto) Eos # (Auto) Baso # (Auto) Sodium Potassium Chloride Carbon Dioxide Anion Gap BUN Creatinine Est Cr Clr Drug Dosing Est GFR ( Amer) Est GFR (Non-Af Amer) BUN/Creatinine Ratio Glucose Calcium Total Bilirubin AST ALT Alkaline Phosphatase Total Protein Albumin Globulin Albumin/Globulin Ratio Lipase TSH HCG, Qual Urine Color Dark Yellow Urine Appearance Cloudy A Urine pH 6.0 Ur Specific Avinger 1.031 H Urine Protein Negative Urine Glucose (UA) Negative Urine Ketones Trace H Urine Blood Negative Urine Nitrite Negative Urine Bilirubin Negative Urine Urobilinogen Negative Ur Leukocyte Esterase Trace H Urine WBC (Auto) 5-10 H Urine RBC (Auto) 10-30 H U Hyaline Cast (Auto) 1-5 U Epithel Cells (Auto) >30 H Urine Bacteria (Auto) 1+ H Salicylates < 1.7 L Urine Opiates Screen Neg Ur Methadone, Qual Neg Acetaminophen 12 Urine Barbiturates Neg Ur Phencyclidine (PCP) Neg U Amphetamin/Meth Scrn Neg MDMA (Ecstasy) Screen Neg U Benzodiazepines Scrn Neg Ur Cocaine Metabolite Neg U Marijuana (THC) Screen Neg Ethyl Alcohol mg/dL 07/13/19 21:14 WBC RBC Hgb Hct MCV MCH MCHC RDW Std Deviation RDW Coeff of Joaquin Plt Count MPV Immature Gran % (Auto) Neut % (Auto) Lymph % (Auto) [place] % (Auto) Eos % (Auto) Baso % (Auto) Immature Gran # (Auto) Neut # (Auto) Lymph # (Auto) [place] # (Auto) Eos # (Auto) Baso # (Auto) Sodium Potassium Chloride Carbon Dioxide Anion Gap BUN Creatinine Est Cr Clr Drug Dosing Est GFR ( Amer) Est GFR (Non-Af Amer) BUN/Creatinine Ratio Glucose Calcium Total Bilirubin AST ALT Alkaline Phosphatase Total Protein Albumin Globulin Albumin/Globulin Ratio Lipase TSH HCG, Qual Urine Color Urine Appearance Urine pH Ur Specific Avinger Urine Protein Urine Glucose (UA) Urine Ketones Urine Blood Urine Nitrite Urine Bilirubin Urine Urobilinogen Ur Leukocyte Esterase Urine WBC (Auto) Urine RBC (Auto) U Hyaline Cast (Auto) U Epithel Cells (Auto) Urine Bacteria (Auto) Salicylates Urine Opiates Screen Ur Methadone, Qual Acetaminophen Urine Barbiturates Ur Phencyclidine (PCP) U Amphetamin/Meth Scrn MDMA (Ecstasy) Screen U Benzodiazepines Scrn Ur Cocaine Metabolite U Marijuana (THC) Screen Ethyl Alcohol mg/dL < 3.0 Current Inpatient Medications Current Inpatient Medications: Current Inpatient Medications Acetaminophen (Tylenol) 650 mg PO Q4H PRN PRN Reason: Headache or Minor Fever Stop: 08/13/19 00:58 Al Hydrox/Mg Hydrox/Simethicone (Maalox) 30 ml PO Q4H PRN PRN Reason: GI Upset Stop: 08/13/19 00:58 Bismuth Subsalicylate (Kaopectate) 15 ml PO PRN PRN PRN Reason: Loose Stool Stop: 08/13/19 00:58 Hydroxyzine HCl (Vistaril) 50 mg PO HSZ PRN PRN Reason: Insomnia Stop: 08/13/19 01:08 Last Admin: 07/14/19 01:33 Dose: 50 mg Documented by: Hydroxyzine HCl (Vistaril) 25 mg PO Q4H PRN PRN Reason: Anxiety Stop: 08/13/19 00:58 Magnesium Hydroxide (Milk Of Magnesia) 30 ml PO DAILY PRN PRN Reason: Constipation Stop: 08/13/19 00:58 Sodium Chloride ([place] Nasal) 1 - 2 sprays NA PRN PRN PRN Reason: Nasal Dryness/Congestion Stop: 08/13/19 00:58
[2019-07-14] MEDS: VENLAFAXINE HCL XR 37.5 MG CAPXR PO SCH (11:18)
[2019-07-14] MEDS: PANTOprazole 40 MG TAB PO SCH (11:18)
[2019-07-15] MEDS: PANTOprazole 40 MG TAB PO SCH (08:57)
[2019-07-15] MEDS: VENLAFAXINE HCL XR 37.5 MG CAPXR PO SCH (08:58)
--- NOTE | 2019-07-15 12:01 | Psychiatric Progress Note ---
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 She has lost hannah in the SSRIs and would like to try a different class of medication, and agreed to a trial of venlafaxine XR. She describes initial depressive symptoms several months ago, and then developed anxiety symptoms (MOLLY and panic). Her symptoms are not entirely classic of major depression and MOLLY, and although she describes some increased anxiety/activation on some of the antidepressants, there does not appear to be a bipolar diathesis based on her description. However, we will need to be alert for side effects given her history of sensitivity and monitor closely for mood destabilization. 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 She would likely benefit from outpatient psychiatric care and therapy, and a plan to increase socialization and supports, with respite from childcare duties. Inpatient treatment is medically necessary due to the severity of symptoms and risk for suicide if discharged prematurely. (1) Suicidal ideation: 07/14 -continue hospitalization on a voluntary basis. -Suicide checks for safety. -Denies access to guns, and denies a stash of medications at home. Scheduled family meeting with shara, and review safety recommendations/discharge safety plan. 07/15 - Reports improvement in SI, but remains unable to contract for safety outside of the hospital setting (2) Depression: 07/14 -patient reports several months of worsening mood symptoms, and multiple failed antidepressant trials due to intolerable side effects. Reviewed diagnosis and treatment recommendations, including medications and therapy, behavioral interventions, increase socialization, and role of self-care. -She is tried bupropion and 3 different SSRIs, all of which caused intolerable side effects. Discussed options of retrial of sertraline 12.5 mg daily with a slower titration, versus a trial of a different type of antidepressant, namely venlafaxine XR. Reviewed risks, benefits, and potential side effects, and provided her with an UpToDate patient handout about the medication. She has multiple appropriate questions, and agreed to a trial. We will start at low- dose 37.5 mg daily, and titrate slowly. -Continue hydroxyzine 50 mg nightly as needed sleep, and 25 mg as needed for anxiety. -Encourage group attendance and participation. -Refer for outpatient psychiatric care and individual therapy. 07/15 - Continue venlafaxine at 37.5mg - pt reporting blurry vision and nausea, though may also be consistent with anxiety based on times reported. Pt agreeable with continuing medication as prescribed - Family meeting this morning with - Continue to encourage group participation to develop healthy and effective coping strategies (3) Anxiety: 07/14 -Anxiety NOS, with symptoms of MOLLY and panic which have developed over the past 1-2 months in the context of first episode of depression. Symptoms are worse in the premenstrual phase, but present most days of the month. Medication adjustments as above. Work on healthy coping skills and behavioral techniques for managing anxiety. 07/15 - Continue to encourage prn hydroxyzine for acute anxiety - Continue venlafaxine as above, with titration as tolerated - Encourage continued participation in group and recreational therapies to explore additional coping strategies (4) GERD (gastroesophageal reflux disease): Resume home dose of omeprazole; recent GERD symptoms likely due to skipping doses. Inventory Assets Strengths: Motivated for treatment, supportive family Needs: Outpatient therapy and psychiatric care, increase socialization Risk Factors Assessment Male: No : Yes Do You Have Access To A Gun?: No Health Problems: Yes Mental Health Diagnoses: Yes Substance Use Disorders: No Previous Attempt: No Family History of Suicide: No Previous Psychiatric Hospitalization: No Hopelessness: Yes Smoker: No Protective Factors Assessment : No (But living with fianc) Responsible for Young Children: Yes Employed: No Stable Relationships: Yes Supportive Family: Yes Interval History Identifying Information NICOLE ALMAZAN is a 29-year-old F who currently lives in [place], has a history of depression treated by her 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 Chief Complaint "So far it's ok. I'm assuming you heard it was a rough morning." Review of Systems Notes Constitutional: reports episodic blurry vision Cardiovascular: denied Respiratory: denied Gastrointestinal: reports nausea Neurological: denied Psychiatric: denies symptoms other than stated above Total of at least 10 systems reviewed, pertinent positives as above and in HPI. Sleep Information Total Hours of Sleep: 5 Sleep Comments: pt given vistaril per rn. pt on q-15 minute checks Meal Information Percent Meal Consumed - Breakfast: 75 Percent Meal Consumed - Dinner: 50 Subjective Subjective Patient was seen & assessed and interval progress reviewed with treatment team. Staff reports the patient is scheduled for meeting with her at 930 this morning. She attended community meeting last evening, rating her mood a 5/10 and "anxious." Patient reported poor sleep last evening, and awoke early this morning with a panic attack. Patient verbalized suicidality yesterday but admitted to safety here on the unit. Patient was seen today to assess progress since admission. She states that today is "okay" so far. She does admit to having a rough morning, as anxiety was exacerbated prior to her family meeting with . 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 She states she was also "emotional" and anxious just before her meeting. On both occasions, the patient utilized and benefited from PRN hydroxyzine. Patient states that last evening she was feeling rather low and experiencing increased guilt stating "I felt like a bad mom for being in here." Patient states that she has been "afraid to go to sleep", worried that she will wake with panic. Patient states her meeting with her was "good" and they were able to discuss various family stressors and ways they plan to manage their household in a more beneficial way. Patient states they are planning to have a chore list for their children, and is planning to spend less time at work and more time involved with caring for the kids. Patient reports physical concerns of mild nausea, episodic blurry vision, and "sore gums" today. Patient states that the blurry vision and nausea occurred within the context of anxiety, though she relates this to initiation of venlafaxine. We discussed that there may be multiple causes for these physical complaints, and patient is ultimately agreeable with continuing venlafaxine. She remains concerned for persistent side effects, as she has not tolerated most medications for long in the past. Patient denies suicidal ideation presently, but is concerned about her ability to function safely outside of the hospital setting. She is not at this time able to contract for safety at home, and is hoping to continue to attend groups to develop additional coping strategies to manage stress outside of the hospital. She denies other needs or concerns presently. Physical Exam Psychiatric Orientation: alert, oriented x 3 and cooperative (And pleasant) Apperance: appropriately dressed (Casually, wearing the sweatshirt and sweatpants), appropriately groomed and appeared stated age Eye Contact: good eye contact Motor Behavior: steady gait and station and no abnormal motor movements Speech: normal rate/rhythm/volume of speech Affect: + depressed affect and mood congruent with affect Mood: + depressed mood ("I had a pretty rough morning") and + anxious mood Thought Process: goal directed thought process, clear/coherent thought process and thought association intact Thought Content: reality based without delusions, + hopelessness (Intermittent, improving overall) and + loneliness Suicidal Thoughts: denies suicidal thoughts (Presently, but remains unable to contract for safety outside of hospital) Homicidal Thoughts: denies homicidal thoughts Hallucinations: no auditory hallucinations and no visual hallucinations Cognition: attention grossly intact and language grossly intact Insight: + fair insight Judgement: + fair judgement Vital Signs (Past 24 Hours) Last Vital Signs Temp 36.3 C L 07/15/19 06:50 Pulse 79 07/15/19 06:51 Resp 18 07/15/19 06:50 BP 106/72 07/15/19 06:51 Pulse Ox 99 07/13/19 23:10 Results & Data Current Inpatient Medications Current Inpatient Medications: Current Inpatient Medications Acetaminophen (Tylenol) 650 mg PO Q4H PRN PRN Reason: Headache or Minor Fever Stop: 08/13/19 00:58 Al Hydrox/Mg Hydrox/Simethicone (Maalox) 30 ml PO Q4H PRN PRN Reason: GI Upset Stop: 08/13/19 00:58 Bismuth Subsalicylate (Kaopectate) 15 ml PO PRN PRN PRN Reason: Loose Stool Stop: 08/13/19 00:58 Hydroxyzine HCl (Vistaril) 50 mg PO HSZ PRN PRN Reason: Insomnia Stop: 08/13/19 01:08 Last Admin: 07/14/19 23:46 Dose: 50 mg Documented by: Hydroxyzine HCl (Vistaril) 25 mg PO Q4H PRN PRN Reason: Anxiety Stop: 08/13/19 00:58 Last Admin: 07/15/19 09:30 Dose: 25 mg Documented by: Magnesium Hydroxide (Milk Of Magnesia) 30 ml PO DAILY PRN PRN Reason: Constipation Stop: 08/13/19 00:58 Pantoprazole Sodium (Protonix) 40 mg PO DAILY LOS Stop: 08/13/19 09:59 Last Admin: 07/15/19 08:57 Dose: 40 mg Documented by: Sodium Chloride ([place] Nasal) 1 - 2 sprays NA PRN PRN PRN Reason: Nasal Dryness/Congestion Stop: 08/13/19 00:58 Venlafaxine HCl (Effexor Extended Release) 37.5 mg PO QAM LOS Stop: 08/13/19 10:14 Last Admin: 07/15/19 08:58 Dose: 37.5 mg Documented by: Mental Health & Subst Abuse Tx Psychiatrist Name of Psychiatrist: Dr. Luz John Psychiatrist's Date of Appointment with Psychiatrist: 09/16/19 Time of Appointment with Psychiatrist: 8:15am Psychiatric Appointment Comment: [address], [place] Therapist Name of Therapist: [facility] Date of Therapist Appointment: 07/21/19 Time of Therapist Appointment: 2:30 p.m. Therapy Appointment Comment: [address], [address], [place], [place] Post Discharge Appointments Primary Care Physician Name Of Family Doctor: Dr Fer Roper [facility] Phone Number: [phone] Date of Appointment with PCP: 07/20/19 Time of Appointment with PCP: 10:45 am Provider Appointment Comment: Aidan Batista, [place] D[place] Contact Information Discharge Discharge Address: [address] [place] [address], [place] [address] Contact Information Comment: Pt has been added to waitlist for [facility] for sooner appt, (1) Depression Active/Remission status: currently active Depression Type: major depressive disorder Major depression episode severity: severe Major depression recurrence: single episode Psychotic features: without psychotic features Qualified Code(s): F32.2 - Major depressive disorder, single episode, severe without psychotic features
[2019-07-16] MEDS: VENLAFAXINE HCL XR 37.5 MG CAPXR PO SCH (08:51)
[2019-07-16] MEDS: PANTOprazole 40 MG TAB PO SCH (08:51)
--- NOTE | 2019-07-16 10:25 | Psychiatric Progress Note ---
Date of Service July 16, 2019 Impression / Recommendations Impression 29-year-old partnered female who has a history of depression and anxiety treated for the past several months by her PCP and SOCIAL SCIENCES CHAIR with several different antidepressant trials, all of which were discontinued quickly due to intolerable side effects. She has lost hannah in the SSRIs and would like to try a different class of medication, and agreed to a trial of venlafaxine XR. She describes initial depressive symptoms several months ago, and then developed anxiety symptoms (MOLLY and panic). Her symptoms are not entirely classic of major depression and MOLLY, and although she describes some increased anxiety/activation on some of the antidepressants, there does not appear to be a bipolar diathesis based on her description. However, we will need to be alert for side effects given her history of sensitivity and monitor closely for mood destabilization. 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 She would likely benefit from outpatient psychiatric care and therapy, and a plan to increase socialization and supports, with respite from childcare duties. Inpatient treatment is medically necessary due to the severity of symptoms and risk for suicide if discharged prematurely. (1) Suicidal ideation: 07/14 -continue hospitalization on a voluntary basis. -Suicide checks for safety. -Denies access to guns, and denies a stash of medications at home. Scheduled family meeting with shara, and review safety recommendations/discharge safety plan. 07/15 - Reports improvement in SI, but remains unable to contract for safety outside of the hospital setting 07/16 -Continued improvement reported. Denies suicidal ideation today and appearing more hopeful (2) Depression: 07/14 -patient reports several months of worsening mood symptoms, and multiple failed antidepressant trials due to intolerable side effects. Reviewed diagnosis and treatment recommendations, including medications and therapy, behavioral interventions, increase socialization, and role of self-care. -She is tried bupropion and 3 different SSRIs, all of which caused intolerable side effects. Discussed options of retrial of sertraline 12.5 mg daily with a slower titration, versus a trial of a different type of antidepressant, namely venlafaxine XR. Reviewed risks, benefits, and potential side effects, and provided her with an UpToDate patient handout about the medication. She has multiple appropriate questions, and agreed to a trial. We will start at low- dose 37.5 mg daily, and titrate slowly. -Continue hydroxyzine 50 mg nightly as needed sleep, and 25 mg as needed for anxiety. -Encourage group attendance and participation. -Refer for outpatient psychiatric care and individual therapy. 07/15 - Continue venlafaxine at 37.5mg - pt reporting blurry vision and nausea, though may also be consistent with anxiety based on times reported. Pt agreeab le with continuing medication as prescribed - Family meeting this morning with - Continue to encourage group participation to develop healthy and effective coping strategies 07/16 -Patient tolerating very low-dose Effexor adequately at this point but declines to consider further titration yet due to concern for side effects. She was advised she will likely require a higher dose ultimately for adequate treatment effect -Reporting some improvement in mood with additional supports (3) Anxiety: 07/14 -Anxiety NOS, with symptoms of MOLLY and panic which have developed over the past 1-2 months in the context of first episode of depression. Symptoms are worse in the premenstrual phase, but present most days of the month. Medication adjustments as above. Work on healthy coping skills and behavioral techniques for managing anxiety. 07/15 - Continue to encourage prn hydroxyzine for acute anxiety - Continue venlafaxine as above, with titration as tolerated - Encourage continued participation in group and recreational therapies to explore additional coping strategies 07/16 -Anxiety less acute in last 24 hours -Suggested mirtazapine trial for anxiety, particularly anxiety and panic overnight however patient declined to consider new agent yet. This can be revisited as an outpatient if necessary -Illness education provided regarding panic attacks and she was assisted in developing some cognitive strategies to improve coping -Continue Effexor and hydroxyzine as above -Patient willing for outpatient psychiatric follow-up. Referral in process (4) GERD (gastroesophageal reflux disease): Resume home dose of omeprazole; recent GERD symptoms likely due to skipping doses. Inventory Assets Strengths: Motivated for treatment, supportive family Needs: Outpatient therapy and psychiatric care, increase socialization Risk Factors Assessment Male: No : Yes Do You Have Access To A Gun?: No Health Problems: Yes Mental Health Diagnoses: Yes Substance Use Disorders: No Previous Attempt: No Family History of Suicide: No Previous Psychiatric Hospitalization: No Hopelessness: Yes Smoker: No Protective Factors Assessment : No (But living with fianc) Responsible for Young Children: Yes Employed: No Stable Relationships: Yes Supportive Family: Yes Interval History Identifying Information NICOLE ALMAZAN is a 29-year-old F who currently lives in [place], has a history of depression treated by her SOCIAL SCIENCES CHAIR LAST 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 Chief Complaint "At least now I know what it is" Review of Systems Notes denies cardiac sx Sleep Information Total Hours of Sleep: 8 Sleep Comments: pt given vistaril per rn. pt on q-15 minute checks Meal Information Percent Meal Consumed - Breakfast: 30 Percent Meal Consumed - Lunch: 100 Percent Meal Consumed - Dinner: 100 Nutrition Comment: per meal log Subjective Subjective Patient was seen & assessed and interval progress reviewed with treatment team. Patient remains on 201 commitment. Visited by father and yesterday. Staff report history of antidepressant sensitivities/poor tolerability prior to admission. Has been started on Effexor here and has received 3 doses so far. On interview patient reports feeling more depressed since March with worsening in the last month. Onset of panic attacks with symptoms of burning skin, crying, severe anxiety, peripheral tingling, heart racing. These will last 15 minutes and come on without trigger. Due to the severity of her anxiety she has experienced fleeting suicidal ideation however she denies that she has considered a specific plan to harm herself and denies presently any intent to harm herself. Reviewed recent treatment history and she describes poor tolerability of brief Wellbutrin trial as well as poor tolerability in quick discontinuation of both Paxil and Zoloft. So far she reports the Effexor seems reasonably well tolerated. Was still anxious yesterday in the morning but then had a better afternoon and evening. She describes a lot of anxiety and into respiratory anxiety about nighttime due to recent waking with panic. She does perceived benefit from the hydroxyzine both for sleep and acute anxiety. She believes her anxiety tends to be worse in the week before her menses which have been regular. She describes improved hopefulness today. Does feel guilty about her hospitalization. Physical Exam Psychiatric Orientation: alert and oriented x 3 Apperance: appropriately dressed and appropriately groomed Eye Contact: good eye contact Motor Behavior: steady gait and station and no abnormal motor movements Speech: normal rate/rhythm/volume of speech Affect: + anxious affect and mood congruent with affect Mood: + depressed mood and + anxious mood Thought Process: goal directed thought process and linear/logical thought process Thought Content: + preoccupation (anxiety, somatic concerns) and reality based without delusions Suicidal Thoughts: denies suicidal thoughts, denies suicidal plan and denies suicidal intent Homicidal Thoughts: denies homicidal thoughts Hallucinations: no auditory hallucinations and no visual hallucinations Cognition: recent memory grossly intact Estimated Intelligence: average estimated intelligence Insight: + fair insight Judgement: + fair judgement Vital Signs (Past 24 Hours) Last Vital Signs Temp 36.7 C 07/16/19 06:39 Pulse 97 H 07/16/19 06:39 Resp 16 07/16/19 06:39 BP 105/72 07/16/19 06:39 Pulse Ox 99 07/13/19 23:10 Results & Data Current Inpatient Medications Current Inpatient Medications: Current Inpatient Medications Acetaminophen (Tylenol) 650 mg PO Q4H PRN PRN Reason: Headache or Minor Fever Stop: 08/13/19 00:58 Al Hydrox/Mg Hydrox/Simethicone (Maalox) 30 ml PO Q4H PRN PRN Reason: GI Upset Stop: 08/13/19 00:58 Last Admin: 07/15/19 21:58 Dose: 30 ml Documented by: Bismuth Subsalicylate (Kaopectate) 15 ml PO PRN PRN PRN Reason: Loose Stool Stop: 08/13/19 00:58 Hydroxyzine HCl (Vistaril) 50 mg PO HSZ PRN PRN Reason: Insomnia Stop: 08/13/19 01:08 Last Admin: 07/15/19 21:58 Dose: 50 mg Documented by: Hydroxyzine HCl (Vistaril) 25 mg PO Q4H PRN PRN Reason: Anxiety Stop: 08/13/19 00:58 Last Admin: 07/15/19 09:30 Dose: 25 mg Documented by: Magnesium Hydroxide (Milk Of Magnesia) 30 ml PO DAILY PRN PRN Reason: Constipation Stop: 08/13/19 00:58 Pantoprazole Sodium (Protonix) 40 mg PO DAILY LOS Stop: 08/13/19 09:59 Last Admin: 07/16/19 08:51 Dose: 40 mg Documented by: Sodium Chloride (Early Nasal) 1 - 2 sprays NA PRN PRN PRN Reason: Nasal Dryness/Congestion Stop: 08/13/19 00:58 Venlafaxine HCl (Effexor Extended Release) 37.5 mg PO QAM LOS Stop: 08/13/19 10:14 Last Admin: 07/16/19 08:51 Dose: 37.5 mg Documented by: Mental Health & Subst Abuse Tx Psychiatrist Name of Psychiatrist: Dr. Luz John Psychiatrist's Date of Appointment with Psychiatrist: 09/16/19 Time of Appointment with Psychiatrist: 8:15 am (on cancellation list as well) Psychiatric Appointment Comment: [address], [place] Therapist Name of Therapist: [facility] Date of Therapist Appointment: 07/21/19 Time of Therapist Appointment: 2:30 p.m. Therapy Appointment Comment: [address], [address], [place], [place] Post Discharge Appointments Primary Care Physician [facility] Date of Appointment with PCP: 07/20/19 Time of Appointment with PCP: 10:45 am Provider Appointment Comment: [address], [place] Contact Information Discharge Discharge Address: [facility] [address] [facility], [place] [address] Contact Information Comment: Pt has been added to waitlist for [facility] for sooner appt, (1) Depression Active/Remission status: currently active Depression Type: major depressive disorder Major depression episode severity: severe Major depression recurrence: single episode Psychotic features: without psychotic features Qualified Code(s): F32.2 - Major depressive disorder, single episode, severe without psychotic features
--- NOTE | 2019-07-17 08:30 | Psychiatric Progress Note ---
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 She has lost hannah in the SSRIs and would like to try a different class of medication, and agreed to a trial of venlafaxine XR. She describes initial depressive symptoms several months ago, and then developed anxiety symptoms (MOLLY and panic). Her symptoms are not entirely classic of major depression and MOLLY, and although she describes some increased anxiety/activation on some of the antidepressants, there does not appear to be a bipolar diathesis based on her description. However, we will need to be alert for side effects given her history of sensitivity and monitor closely for mood destabilization. 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 She would likely benefit from outpatient psychiatric care and therapy, and a plan to increase socialization and supports, with respite from childcare duties. Inpatient treatment is medically necessary due to the severity of symptoms and risk for suicide if discharged prematurely. (1) Suicidal ideation: 07/14 -continue hospitalization on a voluntary basis. -Suicide checks for safety. -Denies access to guns, and denies a stash of medications at home. Scheduled family meeting with shara, and review safety recommendations/discharge safety plan. 07/15 - Reports improvement in SI, but remains unable to contract for safety outside of the hospital setting 07/16 -Continued improvement reported. Denies suicidal ideation today and appearing more hopeful (2) Depression: 07/14 -patient reports several months of worsening mood symptoms, and multiple failed antidepressant trials due to intolerable side effects. Reviewed diagnosis and treatment recommendations, including medications and therapy, behavioral interventions, increase socialization, and role of self-care. -She is tried bupropion and 3 different SSRIs, all of which caused intolerable side effects. Discussed options of retrial of sertraline 12.5 mg daily with a slower titration, versus a trial of a different type of antidepressant, namely venlafaxine XR. Reviewed risks, benefits, and potential side effects, and provided her with an UpToDate patient handout about the medication. She has multiple appropriate questions, and agreed to a trial. We will start at low- dose 37.5 mg daily, and titrate slowly. -Continue hydroxyzine 50 mg nightly as needed sleep, and 25 mg as needed for anxiety. -Encourage group attendance and participation. -Refer for outpatient psychiatric care and individual therapy. 07/15 - Continue venlafaxine at 37.5mg - pt reporting blurry vision and nausea, though may also be consistent with anxiety based on times reported. Pt agreeab le with continuing medication as prescribed - Family meeting this morning with - Continue to encourage group participation to develop healthy and effective coping strategies 07/16 -Patient tolerating very low-dose Effexor adequately at this point but declines to consider further titration yet due to concern for side effects. She was advised she will likely require a higher dose ultimately for adequate treatment effect -Reporting some improvement in mood with additional supports (3) Anxiety: 07/14 -Anxiety NOS, with symptoms of MOLLY and panic which have developed over the past 1-2 months in the context of first episode of depression. Symptoms are worse in the premenstrual phase, but present most days of the month. Medication adjustments as above. Work on healthy coping skills and behavioral techniques for managing anxiety. 07/15 - Continue to encourage prn hydroxyzine for acute anxiety - Continue venlafaxine as above, with titration as tolerated - Encourage continued participation in group and recreational therapies to explore additional coping strategies 07/16 -Anxiety less acute in last 24 hours -Suggested mirtazapine trial for anxiety, particularly anxiety and panic overnight however patient declined to consider new agent yet. This can be revisited as an outpatient if necessary -Illness education provided regarding panic attacks and she was assisted in developing some cognitive strategies to improve coping -Continue Effexor and hydroxyzine as above -Patient willing for outpatient psychiatric follow-up. Referral in process (4) GERD (gastroesophageal reflux disease): Resume home dose of omeprazole; recent GERD symptoms likely due to skipping doses. Inventory Assets Strengths: Motivated for treatment, supportive family Needs: Outpatient therapy and psychiatric care, increase socialization Risk Factors Assessment Male: No : Yes Do You Have Access To A Gun?: No Health Problems: Yes Mental Health Diagnoses: Yes Substance Use Disorders: No Previous Attempt: No Family History of Suicide: No Previous Psychiatric Hospitalization: No Hopelessness: Yes Smoker: No Protective Factors Assessment : No (But living with fianc) Responsible for Young Children: Yes Employed: No Stable Relationships: Yes Supportive Family: Yes Interval History Identifying Information NICOLE ALMAZAN is a 29-year-old F who currently lives in [place], has a history of depression treated by 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 Chief Complaint "[]". Review of Systems Sleep Information Total Hours of Sleep: 5.5 Sleep Comments: pt given vistaril per rn. pt on q-15 minute checks Meal Information Percent Meal Consumed - Breakfast: 30 Percent Meal Consumed - Lunch: 50 Percent Meal Consumed - Dinner: 75 Nutrition Comment: per meal log Subjective Subjective Patient was seen & assessed and interval progress reviewed with [treatment team] [nursing and social work] Physical Exam Vital Signs (Past 24 Hours) Last Vital Signs Temp 36.5 C 07/17/19 06:40 Pulse 64 07/17/19 06:40 Resp 18 07/17/19 06:40 BP 101/67 07/17/19 06:41 Pulse Ox 99 07/13/19 23:10 Results & Data Current Inpatient Medications Current Inpatient Medications: Current Inpatient Medications Acetaminophen (Tylenol) 650 mg PO Q4H PRN PRN Reason: Headache or Minor Fever Stop: 08/13/19 00:58 Al Hydrox/Mg Hydrox/Simethicone (Maalox) 30 ml PO Q4H PRN PRN Reason: GI Upset Stop: 08/13/19 00:58 Last Admin: 07/15/19 21:58 Dose: 30 ml Documented by: Bismuth Subsalicylate (Kaopectate) 15 ml PO PRN PRN PRN Reason: Loose Stool Stop: 08/13/19 00:58 Hydroxyzine HCl (Vistaril) 50 mg PO HSZ PRN PRN Reason: Insomnia Stop: 08/13/19 01:08 Last Admin: 07/17/19 02:12 Dose: 50 mg Documented by: Hydroxyzine HCl (Vistaril) 25 mg PO Q4H PRN PRN Reason: Anxiety Stop: 08/13/19 00:58 Last Admin: 07/16/19 19:55 Dose: 25 mg Documented by: Magnesium Hydroxide (Milk Of Magnesia) 30 ml PO DAILY PRN PRN Reason: Constipation Stop: 08/13/19 00:58 Pantoprazole Sodium (Protonix) 40 mg PO DAILY LOS Stop: 08/13/19 09:59 Last Admin: 07/16/19 08:51 Dose: 40 mg Documented by: Sodium Chloride (Garrett Nasal) 1 - 2 sprays NA PRN PRN PRN Reason: Nasal Dryness/Congestion Stop: 08/13/19 00:58 Venlafaxine HCl (Effexor Extended Release) 37.5 mg PO QAM LOS Stop: 08/13/19 10:14 Last Admin: 07/16/19 08:51 Dose: 37.5 mg Documented by: Mental Health [facility] Subst Abuse [facility] Psychiatrist Name of Psychiatrist: Dr. Luz John Psychiatrist's Date of Appointment with Psychiatrist: 09/16/19 Time of Appointment with Psychiatrist: 8:15 am (on cancellation list as well) Psychiatric Appointment Comment: [address], [place] Therapist [facility] of Therapist: [facility] Date of Therapist Appointment: 07/21/19 Time of Therapist Appointment: 2:30 p.m. Therapy Appointment Comment: [address], [address], [place], [place] Post Discharge Appointments Primary Care Physician Name Of Family Doctor: Dr Fer Roper [facility] Date of Appointment with PCP: 07/20/19 Time of Appointment with PCP: 10:45 am Provider Appointment Comment: Aidan Batista, HAILE Dahl Contact Information Discharge Discharge [address]: [address] [place] [address], [place] [address] Contact Information Comment: Pt has been added to waitlist for [facility] for sooner appt, (1) Depression Active/Remission status: currently active Depression Type: major depressive disorder Major depression episode severity: severe Major depression recurrence: single episode Psychotic features: without psychotic features Qualified Code(s): F32.2 - Major depressive disorder, single episode, severe without psychotic features
[2019-07-17] MEDS: PANTOprazole 40 MG TAB PO SCH (08:54)
[2019-07-17] MEDS: VENLAFAXINE HCL XR 37.5 MG CAPXR PO SCH (08:54)
--- NOTE | 2019-07-17 12:04 | Discharge Summary ---
Date of Service July 17, 2019 History of Present Illness To the ER 07/13/2019 with complaints of abdominal pain. During the assessment, she also endorsed worsening mood and suicidal thoughts to overdose on medication. She has had numerous antidepressant medication trials over the past several weeks, and experienced side effects to multiple medications. She had just started sertraline 25 mg daily 4 days prior to presentation. She was unable to contract for safety outside of the hospital, and agreed to voluntary admission. Labs in the ER were notable for chloride 110, glucose 102, AST of 9, normal TSH, negative test and drug screen. Urinalysis was cloudy, elevated specific gravity, trace ketones and leukocyte esterase, 5-10 WBCs, 10- 30 RBCs, > 30 epithelial cells, and 1+ bacteria. Urine culture is pending. On my assessment, she reports she developed depression in 03/2019, with low mood, decreased energy and motivation, wasn't interacting with her young son. She saw her PCP who started bupropion XL, but felt "too bouncy, like I drank too much caffeine," so stopped it after a few days. She was then seen in the ER last month for reflux, was started on Protonix, which caused diarrhea. She [facility]assy [facility] at [facility], who changed her to omeprazole, and also reported dep ression and anxiety so was started on fluoxetine and hydroxyzine prn. She felt stressed by her son's behavior as he "has his terrible twos early," and her fiance works a lot so wasn't home yet, so she was taking care of all three kids alone. She took fluoxetine for a couple of days but stopped it as felt "I had brain fog, couldn't concentrate or function." She was using hydroxyzine at night which helped "take the edge off" and with sleep. She then saw a PA at [facility], Jackie Varela, in early May. and reported feeling tired, anxious, "like my insides were racing," and says she had lab workup that showed anemia, but TSH and electrolytes were normal. She was started on paroxetine and felt "really jittery, like I drank a whole pot of coffee," and then "like my whole body was on fire." She stopped it after a few days, but had ongoing symptoms for about a week. Anxiety returned about 2 weeks ago, with above symptoms, which she thought was due to hormone levels, so saw her OB-BIRD RAISER ANGELITO - per review of outpatient records, she was seen by ANGELITO Lyon on 07/08/2019 with reports of feeling nervous and shaky. She endorsed a sensation of her heart racing, feeling emotional, difficulty sleeping, headache, dizziness, and impaired concentration for the past month. She was started on sertraline 25 mg daily, with follow-up in 6 weeks. She started the medication about 6 days ago, starting with 12.5mg, and after a few days increased to 25mg HS, and woke up in the middle of the night with mind racing, "a burning sensation in the pit of my stomach, like butterflies, when you're nervous." Yesterday she had abdominal pain, nausea, and heartburn, so came to the ER. She did not take omeprazole yesterday because she read online that it can cause weird dreams and dizziness, and thought maybe it was contributing to her anxiety symptoms. It has been effective for reflux when she takes it. She reports worsening anxiety, "nervousness I can't control," with heart racing "for no reason," "my insides felt like they were racing, working faster than they should be." Estimates these symptoms have been present 50-75% of the time for the past month. Alleviated by self soothing, exacerbated by stress. Reports panic attacks with intense fear, anxiety, tearfulness, and physical symptoms that last 10-20 minutes. These started about a month ago and occur 3-4 times a week. Denies triggers. Denies h/o worrying excessively, but has been worrying more recently, due to concern about her symptoms and thinking that something is wrong or that her symptoms will come back. Thinks low mood started first, and then developed anxiety symptoms. Mood has been "up and down," sometimes changing from minute to minute during the say. Some days feels more tired, sad, anxious, and other days feels good. More bad days than good. Endorses tearfulness "for no reason," energy and motivation are low, denies anhedonia but interest is decreased, sleep is decreased, and appetite decreased with 10 lb weight loss in the past month. Suicidal thoughts started last month, initially fleeting and passive "when I had flare ups," but increased in frequency and intensity, thinking about ending her life so she wouldn't have to feel so uncomfortable. She threw out the discontinued medications, so doesn't have a large stash of meds at home. Denies significant irritability, anger outbursts, emanuel, OCD, psychosis, and PTSD. 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 Physical Exam Psychiatric Orientation: alert, oriented x 3 and cooperative Apperance: appropriately dressed and appropriately groomed Eye Contact: good eye contact Motor Behavior: steady gait and station and no abnormal motor movements Speech: normal rate/rhythm/volume of speech Affect: + anxious affect (mild); no depressed affect, no tearful affect and no labile affect Mood: + anxious mood ("better"); no depressed mood Thought Process: goal directed thought process and linear/logical thought process Thought Content: no delusions Suicidal Thoughts: denies suicidal thoughts, denies suicidal plan and denies suicidal intent Homicidal Thoughts: denies homicidal thoughts Hallucinations: no auditory hallucinations, no visual hallucinations and no tactile hallucinations Cognition: recent memory grossly intact and remote memory grossly intact Estimated Intelligence: average estimated intelligence Insight: good insight Judgement: good judgement Vital Signs (Past 24 Hours) Last Vital Signs Temp 36.5 C 07/17/19 06:40 Pulse 64 07/17/19 06:40 Resp 18 07/17/19 06:40 BP 101/67 07/17/19 06:41 Pulse Ox 99 07/13/19 23:10 Principal Diagnosis Depression; Anxiety Suicidal ideation Psychiatric Data Day of Discharge Assessment Patient reporting resolution of suicidal ideation. Denies passive wish. Endorsing improving hopefulness. She is happy about the support and accommodation from family. Now accepting of need for antidepressant and less wary regarding concern for side effects. She is aware that she will likely require some further titration of the antidepressant and we have discussed consideration for additional interventions at night for overnight anxiety however she feels comfortable enough and confident enough that this can be addressed further as an outpatient. She is aware and accepting of outpatient psychiatric and psychological follow-up. She is aware that she will require a bridging appointment with PCP which has been scheduled. She is able to convincingly contract for safety today and requesting discharge. Advance Directives Advance Directives Information Provided: Yes Advance Directives: No Mental Health Advance Directive: No Advance Directives on File: No Living Will: No Power of Bellows Filler: No Advance Directives Reason:: Declines as Mental Health Visit. Risk Factors Assessment Male: No : Yes Do You Have Access To A Gun?: No Health Problems: Yes Mental Health Diagnoses: Yes Substance Use Disorders: No Previous Attempt: No Family History of Suicide: No Previous Psychiatric Hospitalization: No Hopelessness: Yes Smoker: No Protective Factors Assessment : No (But living with fiwilner) Responsible for Young Children: Yes Employed: No Stable Relationships: Yes Supportive Family: Yes Total Time Total Time Spent: Greater Than 30 Minutes Discharge Data Lab Results 07/13/19 07/13/19 07/13/19 19:11 19:11 19:11 WBC 7.38 RBC 4.46 Hgb 12.5 Hct 37.9 MCV 85.0 MCH 28.0 MCHC 33.0 RDW Std Deviation 43.2 RDW Coeff of Joaquin 14.0 Plt Count 205 MPV 9.9 Immature Gran % (Auto) 0.1 Neut % (Auto) 60.8 Lymph % (Auto) 30.4 [place] % (Auto) 7.7 Eos % (Auto) 0.7 Baso % (Auto) 0.3 Immature Gran # (Auto) 0.01 Neut # (Auto) 4.49 Lymph # (Auto) 2.24 [place] # (Auto) 0.57 Eos # (Auto) 0.05 Baso # (Auto) 0.02 Sodium 142 Potassium 3.6 Chloride 110 H Carbon Dioxide 25 Anion Gap 7.0 BUN 11 Creatinine 0.88 Est Cr Clr Drug Dosing 99.7 Est GFR ( Amer) 102.9 Est GFR (Non-Af Amer) 88.8 BUN/Creatinine Ratio 12.7 Glucose 102 H Calcium 9.4 Total Bilirubin 0.3 AST 9 L ALT 20 Alkaline Phosphatase 84 Total Protein 7.8 Albumin 3.8 Globulin 4.0 Albumin/Globulin Ratio 1.0 Lipase 237 TSH 1.070 HCG, Qual Negative Urine Color Urine Appearance Urine pH Ur Specific Underwood Urine Protein Urine Glucose (UA) Urine Ketones Urine Blood Urine Nitrite Urine Bilirubin Urine Urobilinogen Ur Leukocyte Esterase Urine WBC (Auto) Urine RBC (Auto) U Hyaline Cast (Auto) U Epithel Cells (Auto) Urine Bacteria (Auto) Salicylates Urine Opiates Screen Ur Methadone, Qual Acetaminophen Urine Barbiturates Ur Phencyclidine (PCP) U Amphetamin/Meth Scrn MDMA (Ecstasy) Screen U Benzodiazepines Scrn Ur Cocaine Metabolite U Marijuana (THC) Screen Ethyl Alcohol mg/dL 07/13/19 07/13/19 07/13/19 19:11 19:11 21:14 WBC RBC Hgb Hct MCV MCH MCHC RDW Std Deviation RDW Coeff of Joaquin Plt Count MPV Immature Gran % (Auto) Neut % (Auto) Lymph % (Auto) [place] % (Auto) Eos % (Auto) Baso % (Auto) Immature Gran # (Auto) Neut # (Auto) Lymph # (Auto) [place] # (Auto) Eos # (Auto) Baso # (Auto) Sodium Potassium Chloride Carbon Dioxide Anion Gap BUN Creatinine Est Cr Clr Drug Dosing Est GFR ( Amer) Est GFR (Non-Af Amer) BUN/Creatinine Ratio Glucose Calcium Total Bilirubin AST ALT Alkaline Phosphatase Total Protein Albumin Globulin Albumin/Globulin Ratio Lipase TSH HCG, Qual Urine Color Dark Yellow Urine Appearance Cloudy A Urine pH 6.0 Ur Specific Underwood 1.031 H Urine Protein Negative Urine Glucose (UA) Negative Urine Ketones Trace H Urine Blood Negative Urine Nitrite Negative Urine Bilirubin Negative Urine Urobilinogen Negative Ur Leukocyte Esterase Trace H Urine WBC (Auto) 5-10 H Urine RBC (Auto) 10-30 H U Hyaline Cast (Auto) 1-5 U Epithel Cells (Auto) >30 H Urine Bacteria (Auto) 1+ H Salicylates < 1.7 L Urine Opiates Screen Neg Ur Methadone, Qual Neg Acetaminophen 12 Urine Barbiturates Neg Ur Phencyclidine (PCP) Neg U Amphetamin/Meth Scrn Neg MDMA (Ecstasy) Screen Neg U Benzodiazepines Scrn Neg Ur Cocaine Metabolite Neg U Marijuana (THC) Screen Neg Ethyl Alcohol mg/dL 07/13/19 21:14 WBC RBC Hgb Hct MCV MCH MCHC RDW Std Deviation RDW Coeff of Joaquin Plt Count MPV Immature Gran % (Auto) Neut % (Auto) Lymph % (Auto) [place] % (Auto) Eos % (Auto) Baso % (Auto) Immature Gran # (Auto) Neut # (Auto) Lymph # (Auto) [place] # (Auto) Eos # (Auto) Baso # (Auto) Sodium Potassium Chloride Carbon Dioxide Anion Gap BUN Creatinine Est Cr Clr Drug Dosing Est GFR ( Amer) Est GFR (Non-Af Amer) BUN/Creatinine Ratio Glucose Calcium Total Bilirubin AST ALT Alkaline Phosphatase Total Protein Albumin Globulin Albumin/Globulin Ratio Lipase TSH HCG, Qual Urine Color Urine Appearance Urine pH Ur Specific Underwood Urine Protein Urine Glucose (UA) Urine Ketones Urine Blood Urine Nitrite Urine Bilirubin Urine Urobilinogen Ur Leukocyte Esterase Urine WBC (Auto) Urine RBC (Auto) U Hyaline Cast (Auto) U Epithel Cells (Auto) Urine Bacteria (Auto) Salicylates Urine Opiates Screen Ur Methadone, Qual Acetaminophen Urine Barbiturates Ur Phencyclidine (PCP) U Amphetamin/Meth Scrn MDMA (Ecstasy) Screen U Benzodiazepines Scrn Ur Cocaine Metabolite U Marijuana (THC) Screen Ethyl Alcohol mg/dL < 3.0 Hospital Course (1) Suicidal ideation: 07/14 -continue hospitalization on a voluntary basis. -Suicide checks for safety. -Denies access to guns, and denies a stash of medications at home. Scheduled family meeting with shara, and review safety recommendations/discharge safety plan. 07/15 - Reports improvement in SI, but remains unable to contract for safety outside of the hospital setting 07/16 -Continued improvement reported. Denies suicidal ideation today and appearing more hopeful 07/17 -Patient continues to deny suicidal ideation and convincingly able to contract for safety out of the hospital. She has completed a safety plan and agrees to seek emergent intervention should her suicidality return. (2) Depression: 07/14 -patient reports several months of worsening mood symptoms, and multiple failed antidepressant trials due to intolerable side effects. Reviewed diagnosis and treatment recommendations, including medications and therapy, behavioral interventions, increase socialization, and role of self-care. -She is tried bupropion and 3 different SSRIs, all of which caused intolerable side effects. Discussed options of retrial of sertraline 12.5 mg daily with a slower titration, versus a trial of a different type of antidepressant, namely venlafaxine XR. Reviewed risks, benefits, and potential side effects, and provided her with an UpToDate patient handout about the medication. She has multiple appropriate questions, and agreed to a trial. We will start at low- dose 37.5 mg daily, and titrate slowly. -Continue hydroxyzine 50 mg nightly as needed sleep, and 25 mg as needed for anxiety. -Encourage group attendance and participation. -Refer for outpatient psychiatric care and individual therapy. 07/15 - Continue venlafaxine at 37.5mg - pt reporting blurry vision and nausea, though may also be consistent with anxiety based on times reported. Pt agreeable with continuing medication as prescribed - Family meeting this morning with - Continue to encourage group participation to develop healthy and effective coping strategies 07/16 -Patient tolerating very low-dose Effexor adequately at this point but declines to consider further titration yet due to concern for side effects. She was advised she will likely require a higher dose ultimately for adequate treatment effect -Reporting some improvement in mood with additional supports 07/17 -Describing improving hopefulness. -Tolerating Effexor XR 37.5 mg daily. Advised this dose should likely be progressed to at least 75 mg daily for adequate antidepressant and anxiolytic benefit however she declines to remain in the hospital for continued titration but agrees to follow-up with outpatient providers as scheduled. Reviewed she does have both psychiatric and therapy follow-up scheduled however will require a bridging appointment with PCP before she is scheduled to see her new psychiatrist in August (3) Anxiety: 07/14 -Anxiety NOS, with symptoms of MOLLY and panic which have developed over the past 1-2 months in the context of first episode of depression. Symptoms are worse in the premenstrual phase, but present most days of the month. Medication adjustments as above. Work on healthy coping skills and behavioral techniques for managing anxiety. 07/15 - Continue to encourage prn hydroxyzine for acute anxiety - Continue venlafaxine as above, with titration as tolerated - Encourage continued participation in group and recreational therapies to explore additional coping strategies 07/16 -Anxiety less acute in last 24 hours -Suggested mirtazapine trial for anxiety, particularly anxiety and panic overnight however patient declined to consider new agent yet. This can be revisited as an outpatient if necessary -Illness education provided regarding panic attacks and she was assisted in developing some cognitive strategies to improve coping -Continue Effexor and hydroxyzine as above -Patient willing for outpatient psychiatric follow-up. Referral in process 07/17 -Anxiety remains less acute but incompletely resolved. -She reports adequate response from as needed hydroxyzine overnight and indicates that she does have a quantity of this already at home and does not require a new prescription -She will continue the Effexor as above. She now is able to demonstrate understanding that her symptoms are from panic and not medication side effects. -Brief cognitive intervention again today framing symptoms of panic as temporary, nonlethal, and something that is known and treatable. (4) GERD (gastroesophageal reflux disease): Resume home dose of omeprazole; recent GERD symptoms likely due to skipping doses. Mental Health & Subst Abuse Tx Psychiatrist Name of Psychiatrist: Dr. Luz John Psychiatrist's Date of Appointment with Psychiatrist: 09/16/19 Time of Appointment with Psychiatrist: 8:15 am (on cancellation list as well) Psychiatric Appointment Comment: [facility] Natalie Retana, [place] Therapist Name of Therapist: [facility] Date of Therapist Appointment: 07/21/19 Time of Therapist Appointment: 2:30 p.m. Therapy Appointment Comment: [address] [facility], [address], [place], [place] Post Discharge Appointments Primary Care Physician Name Of Family Doctor: Dr Fer [facility] Date of Appointment with PCP: 07/20/19 Time of Appointment with PCP: 10:45 am Provider Appointment Comment: [address], [place] Contact Information Discharge Discharge Address: [facility] [address] [facility], [place] [address] Contact Information Comment: Pt has been added to waitlist for [facility] for sooner appt, Discharge Plan Discharge Items Reason For Visit: DEPRESSION NOS Follow-up/Referrals: Juan Monroe MD [Primary Care Provider] - Medications and DC Order Prescriptions: No Action sertraline [Zoloft] 25 mg tablet 25 mg PO DAILY Qty: 30 RF: 2 omeprazole 20 mg capsule,delayed release(DR/EC) 20 mg PO DAILY RF: 0 Admission Data Admit Date/Time: 07/13/19 22:52 Attending Provider: Danay Méndez Admit Provider: Brandon Robledo I. Primary Care Provider: Juan Monroe Other Interventions: PSY Interdisciplinary Discharge Planning Last Done: 07/15/19 17:45 Coding Level of Care Code 98586 D/C day mgmt > 30 min Diagnoses Suicidal ideation R45.851 Depression F32.2 Active/Remission status: currently active Depression Type: major depressive disorder Major depression episode severity: severe Major depression recurrence: single episode Psychotic features: without psychotic features Anxiety F41.9 GERD (gastroesophageal reflux disease) K21.9 Time Spent (min) 35
--- NOTE | 2019-07-17 12:29 | Discharge Summary ---
Date of Service July 17, 2019 Please see other document titled Psychiatric D/C Summary from this date which includes hospital course and condition at discharge History of Present Illness To the ER 07/13/2019 with complaints of abdominal pain. During the assessment, she also endorsed worsening mood and suicidal thoughts to overdose on medication. She has had numerous antidepressant medication trials over the past several weeks, and experienced side effects to multiple medications. She had just started sertraline 25 mg daily 4 days prior to presentation. She was unable to contract for safety outside of the hospital, and agreed to voluntary admission. Labs in the ER were notable for chloride 110, glucose 102, AST of 9, normal TSH, negative test and drug screen. Urinalysis was cloudy, elevated specific gravity, trace ketones and leukocyte esterase, 5-10 WBCs, 10- 30 RBCs, > 30 epithelial cells, and 1+ bacteria. Urine culture is pending. On my assessment, she reports she developed depression in 03/2019, with low mood, decreased energy and motivation, wasn't interacting with her young son. She saw her PCP who started bupropion XL, but felt "too bouncy, like I drank too much caffeine," so stopped it after a few days. She was then seen in the ER last month for reflux, was started on Protonix, which caused diarrhea. [facility], who changed her to omeprazole, and also reported depression and anxiety so was started on fluoxetine and hydroxyzine prn. She felt stressed by her son's behavior as he "has his terrible twos early," and her fiance works a lot so wasn't home yet, so she was taking care of all three kids alone. She took fluoxetine for a couple of days but stopped it as felt "I had brain fog, couldn't concentrate or function." She was using hydroxyzine at night which helped "take the edge off" and with sleep. She then saw a PA at [facility], Jackie Varela, in early May. and reported feeling tired, anxious, "like my insides were racing," and says she had lab workup that showed anemia, but TSH and electrolytes were normal. She was started on paroxetine and felt "really jittery, like I drank a whole pot of coffee," and then "like my whole body was on fire." She stopped it after a few days, but had ongoing symptoms for about a week. 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 She endorsed a sensation of her heart racing, feeling emotional, difficulty sleeping, headache, dizziness, and impaired concentration for the past month. She was started on sertraline 25 mg daily, with follow-up in 6 weeks. She started the medication about 6 days ago, starting with 12.5mg, and after a few days increased to 25mg HS, and woke up in the middle of the night with mind racing, "a burning sensation in the pit of my stomach, like butterflies, when you're nervous." Yesterday she had abdominal pain, nausea, and heartburn, so came to the ER. She did not take omeprazole yesterday because she read online that it can cause weird dreams and dizziness, and thought maybe it was contributing to her anxiety symptoms. It has been effe ctive for reflux when she takes it. She reports worsening anxiety, "nervousness I can't control," with heart racing "for no reason," "my insides felt like they were racing, working faster than they should be." Estimates these symptoms have been present 50-75% of the time for the past month. Alleviated by self soothing, exacerbated by stress. Reports panic attacks with intense fear, anxiety, tearfu lness, and physical symptoms that last 10-20 minutes. These started about a month ago and occur 3-4 times a week. Denies triggers. Denies h/o worrying excessively, but has been worrying more recently, due to concern about her symptoms and thinking that something is wrong or that her symptoms will come back. Thinks low mood started first, and then developed anxiety symptoms. Mood has been "up and down," sometimes changing from minute to minute during the say. Some days feels more tired, sad, anxious, and other days feels good. More bad days than good. Endorses tearfulness "for no reason," energy and motivation are low, denies anhedonia but interest is decreased, sleep is decreased, and appetite decreased with 10 lb weight loss in the past month. Suicidal thoughts started last month, initially fleeting and passive "when I had flare ups," but increased in frequency and intensity, thinking about ending her life so she wouldn't have to feel so uncomfortable. She threw out the discontinued m edications, so doesn't have a large stash of meds at home. Denies significant irritability, anger outbursts, emanuel, OCD, psychosis, and PTSD. 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 Physical Exam Vital Signs (Past 24 Hours) Last Vital Signs Temp 36.5 C 07/17/19 06:40 Pulse 64 07/17/19 06:40 Resp 18 07/17/19 06:40 BP 101/67 07/17/19 06:41 Pulse Ox 99 07/13/19 23:10 Principal Diagnosis depression/anxiety/SI Psychiatric Data Advance Directives Advance Directives Information Provided: Yes Advance Directives: No Mental Health Advance Directive: No Advance Directives on File: No Living Will: No Power of Head Of Loss Prevention: No Advance Directives Reason:: Declines as Mental Health Visit. Risk Factors Assessment Male: No : Yes Do You Have Access To A Gun?: No Health Problems: Yes Mental Health Diagnoses: Yes Substance Use Disorders: No Previous Attempt: No Family History of Suicide: No Previous Psychiatric Hospitalization: No Hopelessness: Yes Smoker: No Protective Factors Assessment : No (But living with fiwilner) Responsible for Young Children: Yes Employed: No Stable Relationships: Yes Supportive Family: Yes Discharge Data Lab Results 07/13/19 07/13/19 07/13/19 19:11 19:11 19:11 WBC 7.38 RBC 4.46 Hgb 12.5 Hct 37.9 MCV 85.0 MCH 28.0 MCHC 33.0 RDW Std Deviation 43.2 RDW Coeff of Joaquin 14.0 Plt Count 205 MPV 9.9 Immature Gran % (Auto) 0.1 Neut % (Auto) 60.8 Lymph % (Auto) 30.4 Upson % (Auto) 7.7 Eos % (Auto) 0.7 Baso % (Auto) 0.3 Immature Gran # (Auto) 0.01 Neut # (Auto) 4.49 Lymph # (Auto) 2.24 Upson # (Auto) 0.57 Eos # (Auto) 0.05 Baso # (Auto) 0.02 Sodium 142 Potassium 3.6 Chloride 110 H Carbon Dioxide 25 Anion Gap 7.0 BUN 11 Creatinine 0.88 Est Cr Clr Drug Dosing 99.7 Est GFR ( Amer) 102.9 Est GFR (Non-Af Amer) 88.8 BUN/Creatinine Ratio 12.7 Glucose 102 H Calcium 9.4 Total Bilirubin 0.3 AST 9 L ALT 20 Alkaline Phosphatase 84 Total Protein 7.8 Albumin 3.8 Globulin 4.0 Albumin/Globulin Ratio 1.0 Lipase 237 TSH 1.070 HCG, Qual Negative Urine Color Urine Appearance Urine pH Ur Specific [place] Urine Protein Urine Glucose (UA) Urine Ketones Urine Blood Urine Nitrite Urine Bilirubin Urine Urobilinogen Ur Leukocyte Esterase Urine WBC (Auto) Urine RBC (Auto) U Hyaline Cast (Auto) U Epithel Cells (Auto) Urine Bacteria (Auto) Salicylates Urine Opiates Screen Ur Methadone, Qual Acetaminophen Urine Barbiturates Ur Phencyclidine (PCP) U Amphetamin/Meth Scrn MDMA (Ecstasy) Screen U Benzodiazepines Scrn Ur Cocaine Metabolite U Marijuana (THC) Screen Ethyl Alcohol mg/dL 07/13/19 07/13/19 07/13/19 19:11 19:11 21:14 WBC RBC Hgb Hct MCV MCH MCHC RDW Std Deviation RDW Coeff of Joaquin Plt Count MPV Immature Gran % (Auto) Neut % (Auto) Lymph % (Auto) Upson % (Auto) Eos % (Auto) Baso % (Auto) Immature Gran # (Auto) Neut # (Auto) Lymph # (Auto) Upson # (Auto) Eos # (Auto) Baso # (Auto) Sodium Potassium Chloride Carbon Dioxide Anion Gap BUN Creatinine Est Cr Clr Drug Dosing Est GFR ( Amer) Est GFR (Non-Af Amer) BUN/Creatinine Ratio Glucose Calcium Total Bilirubin AST ALT Alkaline Phosphatase Total Protein Albumin Globulin Albumin/Globulin Ratio Lipase TSH HCG, Qual Urine Color Dark Yellow Urine Appearance Cloudy A Urine pH 6.0 Ur Specific [place] 1.031 H Urine Protein Negative Urine Glucose (UA) Negative Urine Ketones Trace H Urine Blood Negative Urine Nitrite Negative Urine Bilirubin Negative Urine Urobilinogen Negative Ur Leukocyte Esterase Trace H Urine WBC (Auto) 5-10 H Urine RBC (Auto) 10-30 H U Hyaline Cast (Auto) 1-5 U Epithel Cells (Auto) >30 H Urine Bacteria (Auto) 1+ H Salicylates < 1.7 L Urine Opiates Screen Neg Ur Methadone, Qual Neg Acetaminophen 12 Urine Barbiturates Neg Ur Phencyclidine (PCP) Neg U Amphetamin/Meth Scrn Neg MDMA (Ecstasy) Screen Neg U Benzodiazepines Scrn Neg Ur Cocaine Metabolite Neg U Marijuana (THC) Screen Neg Ethyl Alcohol mg/dL 07/13/19 21:14 WBC RBC Hgb Hct MCV MCH MCHC RDW Std Deviation RDW Coeff of Joaquin Plt Count MPV Immature Gran % (Auto) Neut % (Auto) Lymph % (Auto) Upson % (Auto) Eos % (Auto) Baso % (Auto) Immature Gran # (Auto) Neut # (Auto) Lymph # (Auto) Upson # (Auto) Eos # (Auto) Baso # (Auto) Sodium Potassium Chloride Carbon Dioxide Anion Gap BUN Creatinine Est Cr Clr Drug Dosing Est GFR ( Amer) Est GFR (Non-Af Amer) BUN/Creatinine Ratio Glucose Calcium Total Bilirubin AST ALT Alkaline Phosphatase Total Protein Albumin Globulin Albumin/Globulin Ratio Lipase TSH HCG, Qual Urine Color Urine Appearance Urine pH Ur Specific [place] Urine Protein Urine Glucose (UA) Urine Ketones Urine Blood Urine Nitrite Urine Bilirubin Urine Urobilinogen Ur Leukocyte Esterase Urine WBC (Auto) Urine RBC (Auto) U Hyaline Cast (Auto) U Epithel Cells (Auto) Urine Bacteria (Auto) Salicylates Urine Opiates Screen Ur Methadone, Qual Acetaminophen Urine Barbiturates Ur Phencyclidine (PCP) U Amphetamin/Meth Scrn MDMA (Ecstasy) Screen U Benzodiazepines Scrn Ur Cocaine Metabolite U Marijuana (THC) Screen Ethyl Alcohol mg/dL < 3.0 Mental Health & Subst Abuse Tx Psychiatrist Name of Psychiatrist: Dr. Luz John Psychiatrist's Date of Appointment with Psychiatrist: 09/16/19 Time of Appointment with Psychiatrist: 8:15 am (on cancellation list as well) Psychiatric Appointment Comment: [address], [facility] Therapist Name of Therapist: [facility] Date of Therapist Appointment: 07/21/19 Time of Therapist Appointment: 2:30 p.m. Therapy Appointment Comment: [address], [address], [place], [place] Post Discharge Appointments Primary Care Physician Name Of Family Doctor: Dr Monroe - [facility] Date of Appointment with PCP: 07/20/19 Time of Appointment with PCP: 10:45 am Provider Appointment Comment: [address], [place] Contact Information Discharge Discharge Address: [address] , [place] [address] Contact Information Comment: Pt has been added to waitlist for [facility] for sooner appt, Discharge Plan Discharge Items Patient Disposition: Home - Self-Care Reason For Visit: DEPRESSION NOS Discharge Diagnosis: Depression, Anxiety, Suicidal Ideation Condition on Discharge: Good Activity: Resume your previous activity Non-emergency contact: Primary Care Provider Call non-emergency contact if: you have any medication questions and your symptoms worsen Follow-up/Referrals: Juan Monroe MD [Primary Care Provider] - Diet: Regular Addtl Attending Provider Instructions: as per d/c instructions Pending Studies at Discharge: No Stand-Alone Forms: My Stypi, Smoking Cessation Medications and DC Order Prescriptions: New venlafaxine 37.5 mg Capsule,Extended Release 24hr 37.5 mg PO QAM Qty: 7 RF: 0 Continued omeprazole 20 mg capsule,delayed release(DR/EC) 20 mg PO DAILY RF: 0 Discontinued sertraline [Zoloft] 25 mg tablet 25 mg PO DAILY Qty: 30 RF: 2 Discharge Orders: Discharge Order (Routine); Ordered 07/17/19 Ordered By: Mendoza Durbin Admission Data Admit Date/Time: 07/13/19 22:52 Attending Provider: Danay Méndez Admit Provider: Brandon Robledo I. Primary Care Provider: Juan Monroe Other Interventions: PSY Interdisciplinary Discharge Planning Last Done: 07/15/19 17:45 Coding Level of Care Code 60040 D/C day mgmt > 30 min
== END 2019-07-17 14:00 | disposition home or self-care (01) | DRG 881 ==
LOC: ED 18:11 → 3S 22:52